=== PATIENT | female | born 1955 | race Caucasian/White ===

== ENCOUNTER 2017-03-11 23:32 | Inpatient (IN) | payer OTHER, MEDICARE ==
--- NOTE | 2017-03-12 00:05 | ED PDOC ---
Arrival/HPI - General Chief Complaint: Altered Mental Status Time Seen by Provider: 03/11/17 23:48 Historian: Family (Daughter) - History of Present Illness Narrative History of Present Illness (Text): 03/11/17 23:59 A 61 year old female, whose past medical history includes diabetes, hypertension , and hypothyroidism, who presents to emergency room brought in by EMS for altered mental status since earlier today. 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 Daughter reports patient was also complaining of dizziness. Daughter notes this is not her mother's normal behavior. Patient is oriented to person and place, disoriented to time. ROS and HPI limited due to patient's condition. Time/Duration: Other (earlier today) Symptom Onset: Other Symptom Course: Other Quality: Other Activities at Onset: Rest Context: Home Past Medical History - Provider Review Nursing Documentation Reviewed: Yes - Infectious Disease Hx of Infectious Diseases: None - Cardiac Hx Angina: Yes Hx Atrial Fibrillation: No Hx Congestive Heart Failure: No Hx SD: No Hx Hypertension: Yes Hx Pacemaker: No Hx Peripheral Vascular Disease: No - Pulmonary Hx Asthma: No Hx Chronic Obstructive Pulmonary Disease (COPD): No - Neurological Hx Seizures: No - HEENT Hx HEENT Disorder: No - Renal Hx Renal Disorder: No - Endocrine/Metabolic Hx Hypothyroidism: Yes - Hematological/Oncological Hx Blood Disorders: No - Integumentary Hx Dermatological Disorder: No - Musculoskeletal/Rheumatological Hx Arthritis: Yes (shoulder) - Gastrointestinal Hx Gastrointestinal Disorders: Yes Hx Hemorrhoids: Yes - Genitourinary/Gynecological Hx Genitourinary Disorders: No - Psychiatric Hx Psychophysiologic Disorder: No Hx Substance Use: No - Surgical History Hx Cardiac Catheterization: No Hx Coronary Artery Bypass Graft: No - Anesthesia Hx Anesthesia: Yes Hx Anesthesia Reactions: No Hx Malignant Hyperthermia: No Family/Social History - Physician Review Nursing Documentation Reviewed: Yes Family/Social History: No Known Family HX Smoking Status: Heavy Smoker > 10 Cigarettes Daily Hx Alcohol Use: No Hx Substance Use: No Allergies/Home Meds Allergies/Adverse Reactions: Allergies No Known Allergies Allergy (Verified 03/11/17 23:38) Home Medications: Home Meds Medication Instructions Recorded Confirmed Calcium Carbonate [Caltrate 600] 600 mg PO BID 08/29/13 08/29/13 Fluticasone/Salmeterol [Advair 1 puff IH DAILY 08/29/13 08/29/13 Diskus 250/50] Levothyroxine Sodium 100 mcg PO DAILY 08/29/13 03/11/17 [Levothyroxine] Metformin HCl 1,000 mg PO BID 08/29/13 08/29/13 Sitagliptin Phosphate [Januvia] 50 mg PO DAILY 08/29/13 08/29/13 Canagliflozin [Invokana] 300 mg PO 10/22/15 Cyclobenzaprine [Flexeril] 5 mg PO HS 10/22/15 03/11/17 Mometasone/Formoterol [Dulera 200 10/22/15 Mcg/5 Mcg Inhaler] Naproxen [Naprosyn] 10/22/15 Rosuvastatin Calcium [Crestor] 10/22/15 Valsartan [Diovan] 10/22/15 Aspirin [Ecotrin] 81 mg PO DAILY 03/11/17 03/11/17 Review of Systems - Review of Systems Systems not reviewed;Unavailable: Altered Mental Status Neurological: Dizziness Physical Exam Vital Signs Reviewed: Yes Vital Signs Temp Pulse Resp BP Pulse Ox 03/12/17 04:14 65 22 97 03/12/17 03:19 72 26 H 146/74 97 03/12/17 02:17 60 13 135/75 96 03/12/17 01:11 64 18 139/80 97 03/12/17 00:00 98.2 F 03/11/17 23:34 69 18 148/91 H 96 Temperature: Afebrile Blood Pressure: Normal Pulse: Regular Respiratory Rate: Normal Appearance: Positive for: Well-Appearing, Non-Toxic, Comfortable Pain Distress: None Mental Status: Positive for: Confused (Confused, oriented x2 (person and place)) . No: Alert and Oriented X 3 Finger Stick Blood Glucose: 117 - Systems Exam Head: Present: Atraumatic, Normocephalic Pupils: Present: PERRL Extroacular Muscles: Present: EOMI Conjunctiva: Present: Normal Mouth: Present: Moist Mucous Membranes Neck: Present: Normal Range of Motion Respiratory/Chest: Present: Clear to Auscultation, Good Air Exchange. No: Respiratory Distress, Accessory Muscle Use Cardiovascular: Present: Regular Rate and Rhythm, Normal S1, S2. No: Murmurs Abdomen: Present: Normal Bowel Sounds. No: Tenderness, Distention, Peritoneal Signs Back: Present: Normal Inspection Upper Extremity: Present: Normal Inspection. No: Cyanosis, Edema Lower Extremity: Present: Normal Inspection. No: Edema Neurological: Present: CN II-XII Intact, Speech Normal, Motor Func Grossly Intact, Normal Sensory Function Skin: Present: Warm, Dry, Normal Color. No: Rashes Psychiatric: No: Oriented x 3 (Confused, oriented x2 (person and place only)) Medical Decision Making ED Course and Treatment: 03/12/17 00:08 Impression: A 61 year old female complaining of disoriented/confused tonight after waking up. Differential Diagnosis included but are not limited to: hypogylcemia vs. cerebral bleed vs. CVA Plan: -- CAT scan head -- EKG -- Chest X-ray -- labs and blood work -- Reassess and disposition Progress Notes: EKG: Ordered, reviewed, and independently interpreted the EKG. Rate : 63 BPM Rhythm : NSR. Left axis deviation. Inferior infarct Interpretation : No ST-segment elevations or depressions, no T-wave inversions, normal intervals. 03/12/17 00:47 Reviewed radiology, Chest X-ray shows no acute processes. 03/12/17 00:59 CT Head Without Intravenous Contrast shows FINDINGS: Limitations: Limited due to patient positioning. Brain: There is mixed density acute on subacute right convexity subdural hematoma measuring 1.7 cm with subfalcine herniation and [id number] midline shift of 1.7 cm. There is mild uncal herniation. No significant white matter disease. Ventricles: There is entrapment of right lateral ventricle and dilatation of left lateral ventricle.Correlation with clinical data is recommended to evaluate for acute obstructive hydrocephalus. Bones/joints: Unremarkable. No acute fracture. Soft tissues: Unremarkable. Sinuses: Unremarkable. No acute sinusitis. Mastoid air cells: Unremarkable. No mastoid effusion. Orbits: The globe and lens are intact. Dental: Edentulous maxilla and mandible. IMPRESSION: 1. There is mixed density acute on subacute right convexity subdural hematoma measuring 1.7 cm with subfalcine herniation and [id number] midline shift of 1.7 cm. 2. There is mild uncal herniation. 3. There is entrapment of right lateral ventricle and dilatation of left lateral ventricle.Correlation with clinical data is recommended to evaluate for acute obstructive hydrocephalus. 03/12/17 01:[address] Luna, neurosurgeon perfusionist, who is aware and agrees with plan. States pt will go to the OR in the morning. Requests ICU admission. 03/12/17 01:[address] Loja, electronics lead, who is aware and agrees to evaluate pt. 03/12/17 01:55 Case was discussed with Dr. Luna,Dr. Newby, Dr. Loja. Decided that pt should undergo earlier surgical intervention given the nature of her CT scan findings and pt's increasing somnolence. 03/12/17 02:16 Case discussed with , who requests patient go to the hospitalist service. 03/12/17 02:17 Spoke with . Patient will be admitted to ICU for subdural hematoma under the hospital service. - Critical Care Critical Care Minutes: 30 minutes - Lab Interpretations Lab Results: 03/12/17 00:15 03/12/17 00:15 Lab Results 03/12/17 00:15: WBC 9.4, RBC 5.63, Hgb 12.6, Hct 37.6, MCV 66.8 L, MCH 22.4 L, MCHC 33.5, RDW 14.6 H, Plt Count 263, MPV 10.4 03/12/17 00:15: Sodium 143, Potassium 3.6, Chloride 104, Carbon Dioxide 25, Anion Gap 17, BUN 13, Creatinine 0.6 L, Est GFR ( Amer) > 60, Est GFR ( Non-Af Amer) > 60, Random Glucose 137 H, Calcium 7.1 L, Total Bilirubin 0.6, AST 23, ALT 32, Alkaline Phosphatase 54, Lactate Dehydrogenase 505, Total Creatine Kinase 119, Troponin I < 0.01, Total Protein 7.4, Albumin 4.4, Globulin 3.0, Albumin/Globulin Ratio 1.4 03/12/17 00:15: PT 12.0, INR 1.10 H, APTT 33.0 I have reviewed the lab results: Yes - RAD Interpretation Radiology Orders: 03/12/17 00:03 CHEST PORTABLE [RAD] Stat 03/12/17 00:04 HEAD W/O CONTRAST [CT] Stat Numerical Control Machine Tool Operator: ED Physician - EKG Interpretation Interpreted by ED Physician: Yes Type: 12 lead EKG - Medication Orders Current Medication Orders: Hydromorphone HCl (Dilaudid) 0.5 mg IVP Q15M PRN PRN Reason: Pain, moderate (4-7) Stop: 03/13/17 06:15 Sodium Chloride (Sodium Chloride 0.9%) 1,000 mls @ 100 mls/hr IV .Q10H [facility] Last Admin: 03/12/17 03:00 Dose: 100 mls/hr eMAR Start Stop Document 03/12/17 03:00 JODY (Rec: 03/12/17 03:32 [id number]) Intravenous Solution Start Date 03/12/17 Start Time 03:00 Insulin Human Lispro (Humalog Low) 0 units SC Q4H JIN PRN Reason: Protocol Last Admin: 03/12/17 03:00 Dose: Not Given Non-Admin Reason: Blood Sugar Parameter Comments: 127 MAR Blood Glucose Document 03/12/17 03:00 JODY (Rec: 03/12/17 03:33 [id number]) Blood Glucose Finger Stick Blood Glucose (70-120) 127 Subcutaneous Administrations Document 03/12/17 03:00 JODY (Rec: 03/12/17 03:33 [id number]) Charges for Administration # of Subcutaneous Administrations 0 Levothyroxine Sodium (Synthroid) 50 mcg IVP DAILY JIN Pantoprazole Sodium (Protonix Inj) 40 mg IVP DAILY JIN - Scribe Statement The provider has reviewed the documentation as recorded by the Scribrandy Dc under supervision of Ailyn Lane. Provider Scribe Attestation: All medical record entries made by the Scribe were at my direction and personally dictated by me. I have reviewed the chart and agree that the record accurately reflects my personal performance of the history, physical exam, medical decision making, and the department course for this patient. I have also personally directed, reviewed, and agree with the discharge instructions and disposition. Disposition/Present on Arrival - Present on Arrival Any Indicators Present on Arrival: No History of DVT/PE: No History of Uncontrolled Diabetes: Yes Urinary Catheter: No History of Decub. Ulcer: No History Surgical Site Infection Following: None - Disposition Have Diagnosis and Disposition been Completed?: Yes Diagnosis: Subdural hematoma Disposition: HOSPITALIZED Disposition Time: 02:23 Patient Plan: Admission Patient Problems: Current Active Problems Problem Status Onset Subdural hematoma Acute Condition: GUARDED
[2017-03-12 00:37] LABS: HEMATOCRIT 37.6 % (36.0-48.0); MEAN CELL VOLUME 66.8 fl (80.0-105.0); MEAN CORPUSCULAR HEMOGLOBIN 22.4 pg (25.0-35.0); MEAN CORPUSCULAR HGB CONC 33.5 g/dl (31.0-37.0); MEAN PLATELET VOLUME 10.4 fl (7.0-11.0); RED CELL DISTRIBUTION WIDTH 14.6 % (11.5-14.5); WHITE BLOOD COUNT 9.4 10^3/ul (4.5-11.0)
[2017-03-12 00:39] LABS: ALB/GLOB RATIO 1.4 (1.1-1.8); ALKALINE PHOSPHATASE 54 U/L (38-126); ALT/SGPT 32 U/L (7-56); AST/SGOT 23 U/L (14-36); BILIRUBIN,TOTAL 0.6 mg/dL (0.2-1.3); BLOOD UREA NITROGEN 13 mg/dL (7-21); CALCIUM 7.1 mg/dL (8.4-10.5); CARBON DIOXIDE 25 mmol/L (21-33); CHLORIDE 104 mmol/L (98-107); GFR AFRICAN-AMERICAN > 60; GLUCOSE,RANDOM 137 mg/dL (70-110); POTASSIUM 3.6 mmol/L (3.6-5.0); SODIUM 143 mmol/L (132-148); TOTAL PROTEIN 7.4 g/dL (5.8-8.3)
[2017-03-12 00:49] LABS: INR 1.1 (0.93-1.08)
--- NOTE | 2017-03-12 00:55 | CT ---
EXAM: CT Head Without Intravenous Contrast CLINICAL HISTORY: 61 years old, female; Signs and symptoms; Altered mental status/memory loss; Additional info: AMS TECHNIQUE: Axial computed tomography images of the head/brain without intravenous contrast. All CT scans at this facility use one or more dose reduction techniques, viz.: automated exposure control; ma/kV adjustment per patient size (including targeted exams where dose is matched to indication; i.e. head); or iterative reconstruction technique. 140 images are submitted. COMPARISON: No relevant prior studies available. FINDINGS: Limitations: Limited due to patient positioning. Brain: There is mixed density acute on subacute right convexity subdural hematoma measuring 1.7 cm with subfalcine herniation and [id number] midline shift of 1.7 cm. There is mild uncal herniation. No significant white matter disease. Ventricles: There is entrapment of right lateral ventricle and dilatation of left lateral ventricle.Correlation with clinical data is recommended to evaluate for acute obstructive hydrocephalus. Bones/joints: Unremarkable. No acute fracture. Soft tissues: Unremarkable. Sinuses: Unremarkable. No acute sinusitis. Mastoid air cells: Unremarkable. No mastoid effusion. Orbits: The globe and lens are intact. Dental: Edentulous maxilla and mandible. IMPRESSION: 1. There is mixed density acute on subacute right convexity subdural hematoma measuring 1.7 cm with subfalcine herniation and [id number] midline shift of 1.7 cm. 2. There is mild uncal herniation. 3. There is entrapment of right lateral ventricle and dilatation of left lateral ventricle.Correlation with clinical data is recommended to evaluate for acute obstructive hydrocephalus.
[2017-03-12 00:57] LABS: TROPONIN I < 0.01 ng/mL
--- NOTE | 2017-03-12 01:31 | CP.PCM.CON ---
Past Patient History - Infectious Disease Hx of Infectious Diseases: None - Past Medical History & Family History Past Medical History?: Yes - Past Social History Smoking Status: Heavy Smoker > 10 Cigarettes Daily - CARDIAC Hx Angina: Yes Hx Atrial Fibrillation: No Hx Congestive Heart Failure: No Hx Heart Attack: No Hx Hypertension: Yes Hx Pacemaker: No Hx Peripheral Vascular Disease: No - PULMONARY Hx Asthma: No Hx Chronic Obstructive Pulmonary Disease (COPD): No - NEUROLOGICAL Hx Seizures: No - HEENT Hx HEENT Problems: No - RENAL Hx Chronic Kidney Disease: No - ENDOCRINE/METABOLIC Hx Hypothyroidism: Yes - HEMATOLOGICAL/ONCOLOGICAL Hx Blood Disorders: No - INTEGUMENTARY Hx Dermatological Problems: No - MUSCULOSKELETAL/RHEUMATOLOGICAL Hx Arthritis: Yes (shoulder) - GASTROINTESTINAL Hx Gastrointestinal Disorders: Yes Hx Hemorrhoids: Yes - GENITOURINARY/GYNECOLOGICAL Hx Genitourinary Disorders: No - PSYCHIATRIC Hx Psychophysiologic Disorder: No Hx Substance Use: No - SURGICAL HISTORY Hx Cardiac Catheterization: No Hx Coronary Artery Bypass Graft: No - ANESTHESIA Hx Anesthesia: Yes Hx Anesthesia Reactions: No Hx Malignant Hyperthermia: No Meds Allergies/Adverse Reactions: Allergies Allergy/AdvReac Type Severity Reaction Status Date / Time No Known Allergies Allergy Verified 03/11/17 23:38 Results - Vital Signs Recent Vital Signs: Last Vital Signs Temp 98.2 F 03/12/17 00:00 Pulse 64 03/12/17 01:11 Resp 18 03/12/17 01:11 BP 139/80 03/12/17 01:11 Pulse Ox 97 03/12/17 01:11 - Labs Result Diagrams: 03/12/17 00:15 03/12/17 00:15 Labs: Laboratory Results - last 24 hr 03/12/17 03/12/17 03/12/17 00:15 00:15 00:15 WBC 9.4 RBC 5.63 Hgb 12.6 Hct 37.6 MCV 66.8 L MCH 22.4 L MCHC 33.5 RDW 14.6 H Plt Count 263 MPV 10.4 PT 12.0 INR 1.10 H APTT 33.0 Sodium 143 Potassium 3.6 Chloride 104 Carbon Dioxide 25 Anion Gap 17 BUN 13 Creatinine 0.6 L Est GFR ( Amer) > 60 Est GFR (Non-Af Amer) > 60 Random Glucose 137 H Calcium 7.1 L Total Bilirubin 0.6 AST 23 ALT 32 Alkaline Phosphatase 54 Lactate Dehydrogenase 505 Total Creatine Kinase 119 Troponin I < 0.01 Total Protein 7.4 Albumin 4.4 Globulin 3.0 Albumin/Globulin Ratio 1.4
--- NOTE | 2017-03-12 02:09 | CP.PCM.CON ---
History of Present Illness - History of Present Illness History of Present Illness: ICU Consult Note for Dr. Loja Please note history as per daughter at bedside as patient was obtunded 61yo female PMHx HTN, DM2, and hypothyroidism [place] [facility] [place]. Patient's daughter reports that she first noticed that her mother was confused and disoriented when she tried to wake her up at 9pm on the evening of admission. Patient works nights at [employer] and was due to work a shift on night of admission. As per daughter, patient's coworker had informed her that the patient was extremely "sleepy" the night prior at work and could not stay awake. Patient had also complained of some dizziness today and a headache a few days ago. Complete ROS and HPI limited due to patient's condition. PMD: Dr. 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; no drug/ alcohol abuse Meds: pls see chart ALL: denies Past Patient History - Infectious Disease Hx of Infectious Diseases: None - Past Medical History & Family History Past Medical History?: Yes - Past Social History Smoking Status: Heavy Smoker > 10 Cigarettes Daily - CARDIAC Hx Angina: Yes Hx Atrial Fibrillation: No Hx Congestive Heart Failure: No Hx Heart Attack: No Hx Hypertension: Yes Hx Pacemaker: No Hx Peripheral Vascular Disease: No - PULMONARY Hx Asthma: No Hx Chronic Obstructive Pulmonary Disease (COPD): No - NEUROLOGICAL Hx Seizures: No - HEENT Hx HEENT Problems: No - RENAL Hx Chronic Kidney Disease: No - ENDOCRINE/METABOLIC Hx Hypothyroidism: Yes - HEMATOLOGICAL/ONCOLOGICAL Hx Blood Disorders: No - INTEGUMENTARY Hx Dermatological Problems: No - MUSCULOSKELETAL/RHEUMATOLOGICAL Hx Arthritis: Yes (shoulder) - GASTROINTESTINAL Hx Gastrointestinal Disorders: Yes Hx Hemorrhoids: Yes - GENITOURINARY/GYNECOLOGICAL Hx Genitourinary Disorders: No - PSYCHIATRIC Hx Psychophysiologic Disorder: No Hx Substance Use: No - SURGICAL HISTORY Hx Cardiac Catheterization: No Hx Coronary Artery Bypass Graft: No - ANESTHESIA Hx Anesthesia: Yes Hx Anesthesia Reactions: No Hx Malignant Hyperthermia: No Meds Allergies/Adverse Reactions: Allergies Allergy/AdvReac Type Severity Reaction Status Date / Time No Known Allergies Allergy Verified 03/11/17 23:38 - Medications Medications: Current Medications Sodium Chloride (Sodium Chloride 0.9%) 1,000 mls @ 100 mls/hr IV .Q10H JIN Insulin Human Lispro (Humalog Low) 0 units SC Q4H JIN PRN Reason: Protocol Levothyroxine Sodium (Synthroid) 50 mcg IVP DAILY JIN Pantoprazole Sodium (Protonix Inj) 40 mg IVP DAILY JIN Results - Vital Signs Recent Vital Signs: Last Vital Signs Temp 98.2 F 03/12/17 00:00 Pulse 64 03/12/17 01:11 Resp 18 03/12/17 01:11 BP 139/80 03/12/17 01:11 Pulse Ox 97 03/12/17 01:11 - Labs Result Diagrams: 03/12/17 00:15 03/12/17 00:15 Labs: Laboratory Results - last 24 hr 03/12/17 03/12/17 03/12/17 00:15 00:15 00:15 WBC 9.4 RBC 5.63 Hgb 12.6 Hct 37.6 MCV 66.8 L MCH 22.4 L MCHC 33.5 RDW 14.6 H Plt Count 263 MPV 10.4 PT 12.0 INR 1.10 H APTT 33.0 Sodium 143 Potassium 3.6 Chloride 104 Carbon Dioxide 25 Anion Gap 17 BUN 13 Creatinine 0.6 L Est GFR ( Amer) > 60 Est GFR (Non-Af Amer) > 60 Random Glucose 137 H Calcium 7.1 L Total Bilirubin 0.6 AST 23 ALT 32 Alkaline Phosphatase 54 Lactate Dehydrogenase 505 Total Creatine Kinase 119 Troponin I < 0.01 Total Protein 7.4 Albumin 4.4 Globulin 3.0 Albumin/Globulin Ratio 1.4
--- NOTE | 2017-03-12 02:30 | CP.PCM.HP ---
<TristenKati - Last Filed: 03/12/17 02:55> History of Present Illness - History of Present Illness History of Present Illness: Medicine Note for Dr. Loja Please note history as per daughter at bedside as patient was somnolent and not following commands 61yo female PMHx HTN, DM2, and hypothyroidism presents to [facility] ED for AMS. Patient's daughter reports that she first noticed that her mother was confused and disoriented when she tried to wake her up at 9pm on the evening of admission. Patient works nights at [employer] and was due to work a shift on night of admission. As per daughter, patient's coworker had informed her that the patient was extremely "sleepy" the night prior at work and could not stay awake. Patient had also complained of some dizziness today and a headache a few days ago. Complete ROS and HPI limited due to patient's condition. PMD: Dr. 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; no drug/ alcohol abuse Meds: pls see chart ALL: denies Present on Admission - Present on Admission Any Indicators Present on Admission: No Review of Systems - Review of Systems Systems not reviewed;Unavailable: Acuity of Condition, Altered Mental Status Past Patient History - Infectious Disease Hx of Infectious Diseases: None - Past Medical History & Family History Past Medical History?: Yes - Past Social History Smoking Status: Heavy Smoker > 10 Cigarettes Daily - CARDIAC Hx Angina: Yes Hx Atrial Fibrillation: No Hx Congestive Heart Failure: No Hx Heart Attack: No Hx Hypertension: Yes Hx Pacemaker: No Hx Peripheral Vascular Disease: No - PULMONARY Hx Asthma: No Hx Chronic Obstructive Pulmonary Disease (COPD): No - NEUROLOGICAL Hx Seizures: No - HEENT Hx HEENT Problems: No - RENAL Hx Chronic Kidney Disease: No - ENDOCRINE/METABOLIC Hx Hypothyroidism: Yes - HEMATOLOGICAL/ONCOLOGICAL Hx Blood Disorders: No - INTEGUMENTARY Hx Dermatological Problems: No - MUSCULOSKELETAL/RHEUMATOLOGICAL Hx Arthritis: Yes (shoulder) - GASTROINTESTINAL Hx Gastrointestinal Disorders: Yes Hx Hemorrhoids: Yes - GENITOURINARY/GYNECOLOGICAL Hx Genitourinary Disorders: No - PSYCHIATRIC Hx Psychophysiologic Disorder: No Hx Substance Use: No - SURGICAL HISTORY Hx Cardiac Catheterization: No Hx Coronary Artery Bypass Graft: No - ANESTHESIA Hx Anesthesia: Yes Hx Anesthesia Reactions: No Hx Malignant Hyperthermia: No Meds Allergies/Adverse Reactions: Allergies Allergy/AdvReac Type Severity Reaction Status Date / Time No Known Allergies Allergy Verified 03/12/17 12:20 Physical Exam - Constitutional Appears: Confused Additional comments: Limited- patient not following commands - Head Exam Head Exam: ATRAUMATIC, NORMOCEPHALIC - Eye Exam Eye Exam: Normal appearance, PERRL. absent: Conjunctival injection, Scleral icterus - ENT Exam ENT Exam: Mucous Membranes Moist - Respiratory Exam Respiratory Exam: Clear to Auscultation Bilateral, NORMAL BREATHING PATTERN. absent: Accessory Muscle Use, Rales, Rhonchi, Wheezes, Respiratory Distress - Cardiovascular Exam Cardiovascular Exam: REGULAR RHYTHM, +S1, +S2. absent: Systolic Murmur - GI/Abdominal Exam GI & Abdominal Exam: Normal Bowel Sounds, Soft. absent: Tenderness - Extremities Exam Extremities exam: Positive for: normal capillary refill, normal inspection, pedal pulses present. Negative for: pedal edema - Neurological Exam Neurological exam: Altered Additional comments: somnolent - Skin Skin Exam: Dry, Intact Results - Vital Signs Recent Vital Signs: Last Vital Signs Temp 98.2 F 03/12/17 00:00 Pulse 60 03/12/17 02:17 Resp 13 03/12/17 02:17 BP 135/75 03/12/17 02:17 Pulse Ox 96 03/12/17 02:17 - Labs Result Diagrams: 03/12/17 00:15 03/12/17 00:15 Labs: Laboratory Results - last 24 hr 03/12/17 03/12/17 03/12/17 00:15 00:15 00:15 WBC 9.4 RBC 5.63 Hgb 12.6 Hct 37.6 MCV 66.8 L MCH 22.4 L MCHC 33.5 RDW 14.6 H Plt Count 263 MPV 10.4 PT 12.0 INR 1.10 H APTT 33.0 Sodium 143 Potassium 3.6 Chloride 104 Carbon Dioxide 25 Anion Gap 17 BUN 13 Creatinine 0.6 L Est GFR ( Amer) > 60 Est GFR (Non-Af Amer) > 60 Random Glucose 137 H Calcium 7.1 L Total Bilirubin 0.6 AST 23 ALT 32 Alkaline Phosphatase 54 Lactate Dehydrogenase 505 Total Creatine Kinase 119 Troponin I < 0.01 Total Protein 7.4 Albumin 4.4 Globulin 3.0 Albumin/Globulin Ratio 1.4 Assessment & Plan - Assessment and Plan (Free Text) Assessment: 61yo female PMHx HTN, DM2, and hypothyroidism presents to [facility] ED for AMS. Plan: Altered Mental Status -likely secondary to acute on subacute R subdural hematoma -admit to ICU -CT head 03/12: mxied density acute on subacute R convexity subdural hematoma measuring 1.7cm with subfalcine herniation and [id number] midline shift of 1.7cm. There is mild uncal herniation. There is entrapment of right lateral ventricle and dilatation of left lateral ventricle. Correlation with clinical data is recommended to evaluate for acute obstructive hydrocephalus. -patient to go to OR for intervention with neurosurgery given CT head findings and presentation of somnolence -HoB 30degrees -Aspiration, Seizure, and Fall precautions -Neurosurgery Dr. Luna consulted -Neurology Dr. Newby consulted Hx of HTN -patient normotensive on admission -monitor Hx of Hypothyroidism -f/u TSH and free T4 in AM -Synthroid 50mg ivp qdaily Hx of DM -f/u HgbA1c -Accucheck q4 -RISS low q4 GI ppx: Protonix 40mg ivp DVT ppx: VTE c/i; SCDs Diet: NPO Fluids: NS @ 100cc/hr Discussed with Dr. Freedom Ramon PGY2 <Grey Loja Q - Last Filed: 03/13/17 06:58> Results - Vital Signs Recent Vital Signs: Last Vital Signs Temp 99.2 F 03/13/17 06:00 Pulse 69 03/13/17 06:50 Resp 12 03/13/17 06:50 BP 117/59 L 03/13/17 06:00 Pulse Ox 96 03/13/17 02:50 - Labs Result Diagrams: 03/13/17 05:30 03/12/17 09:00 Labs: Laboratory Results - last 24 hr 03/12/17 03/12/17 03/12/17 06:00 07:31 09:00 WBC 13.6 H D RBC 5.48 Hgb 12.0 Hct 36.8 MCV 67.2 L MCH 21.9 L MCHC 32.6 RDW 14.6 H Plt Count 248 MPV 9.9 Gran % 71.8 H Lymph % (Auto) 21.9 L [place] % (Auto) 5.7 Eos % (Auto) 0.4 L Baso % (Auto) 0.2 Gran # 9.79 H Lymph # 3.0 Mobile # 0.8 H Eos # 0.1 Baso # 0.03 Sodium Potassium Chloride Carbon Dioxide Anion Gap BUN Creatinine Est GFR ( Amer) Est GFR (Non-Af Amer) POC Glucose (mg/dL) 147 H Random Glucose Hemoglobin A1c Calcium Phosphorus Magnesium Total Bilirubin AST ALT Alkaline Phosphatase Total Protein Albumin Globulin Albumin/Globulin Ratio 25-OH Vitamin D Total 37.1 Free T4 TSH 3rd Generation 03/12/17 03/12/17 03/12/17 09:00 09:00 09:00 WBC RBC Hgb Hct MCV MCH MCHC RDW Plt Count MPV Gran % Lymph % (Auto) [place] % (Auto) Eos % (Auto) Baso % (Auto) Gran # Lymph # Mobile # Eos # Baso # Sodium 144 Potassium 3.4 L Chloride 107 Carbon Dioxide 27 Anion Gap 14 BUN 14 Creatinine 0.7 Est GFR ( Amer) > 60 Est GFR (Non-Af Amer) > 60 POC Glucose (mg/dL) Random Glucose 124 H Hemoglobin A1c 7.2 H Calcium 6.4 L* Phosphorus 5.5 H Magnesium 1.8 Total Bilirubin 0.5 AST 25 ALT 28 Alkaline Phosphatase 48 Total Protein 7.1 Albumin 4.2 Globulin 2.9 Albumin/Globulin Ratio 1.4 25-OH Vitamin D Total Free T4 0.87 TSH 3rd Generation 13.90 H 03/12/17 03/12/17 03/12/17 11:12 16:27 21:59 WBC RBC Hgb Hct MCV MCH MCHC RDW Plt Count MPV Gran % Lymph % (Auto) [place] % (Auto) Eos % (Auto) Baso % (Auto) Gran # Lymph # Mobile # Eos # Baso # Sodium Potassium Chloride Carbon Dioxide Anion Gap BUN Creatinine Est GFR ( Amer) Est GFR (Non-Af Amer) POC Glucose (mg/dL) 104 156 H 104 Random Glucose Hemoglobin A1c Calcium Phosphorus Magnesium Total Bilirubin AST ALT Alkaline Phosphatase Total Protein Albumin Globulin Albumin/Globulin Ratio 25-OH Vitamin D Total Free T4 TSH 3rd Generation 03/13/17 03/13/17 03/13/17 02:52 05:30 06:48 WBC 9.5 D RBC 4.81 Hgb 10.3 L Hct 32.2 L MCV 66.9 L MCH 21.4 L MCHC 32.0 RDW 14.4 Plt Count 205 MPV 10.2 Gran % 62.6 Lymph % (Auto) 27.7 [place] % (Auto) 8.5 H Eos % (Auto) 1.0 L Baso % (Auto) 0.2 Gran # 5.93 Lymph # 2.6 Mobile # 0.8 H Eos # 0.1 Baso # 0.02 Sodium Potassium Chloride Carbon Dioxide Anion Gap BUN Creatinine Est GFR ( Amer) Est GFR (Non-Af Amer) POC Glucose (mg/dL) 118 H 108 Random Glucose Hemoglobin A1c Calcium Phosphorus Magnesium Total Bilirubin AST ALT Alkaline Phosphatase Total Protein Albumin Globulin Albumin/Globulin Ratio 25-OH Vitamin D Total Free T4 TSH 3rd Generation Attending/Attestation - Attestation I have personally seen and examined this patient.: Yes I have fully participated in the care of the patient.: Yes I have reviewed all pertinent clinical information: Yes Notes (Text): 03/13/17 06:53 I agree with the above mentioned note and exam by the resident with the addition of the followin61 y/o female with a PMHx Htn, hypothyroid was brought to the ED by her daughter for increasing somnolence over the past one to 2 days. She states that she became concerned when the patient didn't case picker her grandson from school so she went to check on her. She was also noted to be increasingly lethargic and somnolent while at work the night prior. Patient was unable to participate in the history or physical exam due to her SDH. She was not following commands and minimally responsive to verbal stimulus. Case discussed with Dr. Luna ( neurosurgeon) at approximately 1:45am who initially planned to take the patient to the OR later in the morning, would be coming in now to take the patient to the OR. Daughter was made aware. Patient will be sent to the ICU post-op for recovery and monitoring all labs and images available to me thus far have been reviewed total time of care: 40 minutes
[2017-03-12] MEDS: Sodium Chloride 0.9% 1,000 ML IV SCH ×2 (03:00→19:45)
[2017-03-12] MEDS: Insulin Lispro (humaLOG) LOW Coverage SC SCH ×6 (03:00→22:31)
[2017-03-12] MEDS ORDERED: Absorbable Gelatin Sponge Size 100 ONE (03:05)
[2017-03-12] MEDS ORDERED: Lidocaine 1% w Epi 1:100,000 Inj ONE (03:06)
[2017-03-12] MEDS ORDERED: Liquid Adhesive TOP ONE (03:06)
[2017-03-12] MEDS ORDERED: Propofol 10 mg/ml Inj (20 ML) ONE (03:19)
[2017-03-12] MEDS ORDERED: Midazolam 2 MG/2 ML VIAL ONE (03:19)
[2017-03-12] MEDS ORDERED: Phenylephrine 10 mg/ml Inj ONE (04:09)
[2017-03-12] MEDS ORDERED: ePHEDrine 50 mg/ml Inj ONE (04:09)
[2017-03-12] MEDS ORDERED: cefTRIAXone (Rocephin) 1 gm Inj ONE (04:32)
[2017-03-12] MEDS ORDERED: Neostigmine Methylsulfate 3mg/3ml Syringe IV ONE (05:23)
[2017-03-12] MEDS ORDERED: Glycopyrrolate 0.2 mg/ml (2ml vial) ONE (05:24)
[2017-03-12] MEDS ORDERED: Bacitracin Ointment 30 GM TUBE ONE (05:39)
[2017-03-12] MEDS ORDERED: HYDROmorphone 0.5 mg/0.5 ml ISec IVP PRN (06:14)
--- NOTE | 2017-03-12 08:23 | RAD ---
HISTORY: ams COMPARISON: No prior. FINDINGS: LUNGS: No active pulmonary disease. PLEURA: No significant pleural effusion identified, no pneumothorax apparent. CARDIOVASCULAR: Normal. OSSEOUS STRUCTURES: No significant abnormalities. VISUALIZED UPPER ABDOMEN: Normal. OTHER FINDINGS: None. IMPRESSION: No active disease.
[2017-03-12 09:18] LABS: BASO # 0.03 K/mm3 (0.0-2.0); BASO % 0.2 % (0.0-3.0); EOS # 0.1 (0.0-0.7); EOS % 0.4 % (1.5-5.0); GRAN # 9.79 (1.4-6.5); GRAN % 71.8 % (50.0-68.0); HEMATOCRIT 36.8 % (36.0-48.0); LYMPH % 21.9 % (22.0-35.0); MEAN CELL VOLUME 67.2 fl (80.0-105.0); MEAN CORPUSCULAR HEMOGLOBIN 21.9 pg (25.0-35.0); MEAN CORPUSCULAR HGB CONC 32.6 g/dl (31.0-37.0); MEAN PLATELET VOLUME 9.9 fl (7.0-11.0); MONO # 0.8 (0.1-0.6); MONO % 5.7 % (1.0-6.0); RED CELL DISTRIBUTION WIDTH 14.6 % (11.5-14.5); WHITE BLOOD COUNT 13.6 10^3/ul (4.5-11.0)
[2017-03-12 09:37] LABS: ALB/GLOB RATIO 1.4 (1.1-1.8); ALKALINE PHOSPHATASE 48 U/L (38-126); ALT/SGPT 28 U/L (7-56); AST/SGOT 25 U/L (14-36); BILIRUBIN,TOTAL 0.5 mg/dL (0.2-1.3); BLOOD UREA NITROGEN 14 mg/dL (7-21); CALCIUM 6.4 mg/dL (8.4-10.5); CARBON DIOXIDE 27 mmol/L (21-33); CHLORIDE 107 mmol/L (98-107); GFR AFRICAN-AMERICAN > 60; GLUCOSE,RANDOM 124 mg/dL (70-110); MAGNESIUM 1.8 mg/dL (1.7-2.2); PHOSPHOROUS 5.5 mg/dL (2.5-4.5); POTASSIUM 3.4 mmol/L (3.6-5.0); SODIUM 144 mmol/L (132-148); TOTAL PROTEIN 7.1 g/dL (5.8-8.3)
[2017-03-12 09:44] LABS: FREE T4 0.87 ng/dL (0.78-2.19)
[2017-03-12] MEDS: Levothyroxine 100 mcg (0.1 mg) Inj IVP SCH (09:51)
[2017-03-12 09:58] LABS: THYROID STIMULATING HORMONE 13.9 mIU/mL (0.46-4.68)
--- NOTE | 2017-03-12 11:16 | CP.PCM.CON ---
<Georgette Cheung - Last Filed: 03/12/17 12:27> History of Present Illness - History of Present Illness History of Present Illness: PGY-2 Neurology progress note for Dr. Newby's service 61 yo female with PMH of HTN, DM2, and hypothyroidism presents to [facility] ED for AMS. Per ED note patient's daughter reported that her mother was confused and disoriented when she tried to wake her up yesterday evening. Reportedly patient had been sleepy at work the day before and complained of some dizziness, and headache a few days ago. In ED head CT showed subdural hematoma. Patient was taken to OR and had hematoma evacuated. This morning s/p hematoma evacuations, patient is awake, alert however some what groggy. She is able to fellow commends. 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; no drug/alcohol abus Allergy: denies Review of Systems - Review of Systems Systems not reviewed;Unavailable: Altered Mental Status Past Patient History - Infectious Disease Hx of Infectious Diseases: None - Past Medical History & Family History Past Medical History?: Yes - Past Social History Smoking Status: Heavy Smoker > 10 Cigarettes Daily - CARDIAC Hx Angina: Yes Hx Atrial Fibrillation: No Hx Congestive Heart Failure: No Hx Heart Attack: No Hx Hypertension: Yes Hx Pacemaker: No Hx Peripheral Vascular Disease: No - PULMONARY Hx Asthma: No Hx Chronic Obstructive Pulmonary Disease (COPD): No - NEUROLOGICAL Hx Seizures: No - HEENT Hx HEENT Problems: No - RENAL Hx Chronic Kidney Disease: No - ENDOCRINE/METABOLIC Hx Hypothyroidism: Yes - HEMATOLOGICAL/ONCOLOGICAL Hx Blood Disorders: No - INTEGUMENTARY Hx Dermatological Problems: No - MUSCULOSKELETAL/RHEUMATOLOGICAL Hx Arthritis: Yes (shoulder) - GASTROINTESTINAL Hx Gastrointestinal Disorders: Yes Hx Hemorrhoids: Yes - GENITOURINARY/GYNECOLOGICAL Hx Genitourinary Disorders: No - PSYCHIATRIC Hx Psychophysiologic Disorder: No Hx Substance Use: No - SURGICAL HISTORY Hx Cardiac Catheterization: No Hx Coronary Artery Bypass Graft: No - ANESTHESIA Hx Anesthesia: Yes Hx Anesthesia Reactions: No Hx Malignant Hyperthermia: No Meds Allergies/Adverse Reactions: Allergies Allergy/AdvReac Type Severity Reaction Status Date / Time No Known Allergies Allergy Verified 03/12/17 12:20 - Medications Medications: Current Medications Acetaminophen/Butalbital/Caffeine (Fioricet) 1 tab PO Q4H PRN PRN Reason: Headache Sodium Chloride (Sodium Chloride 0.9%) 1,000 mls @ 100 mls/hr IV .Q10H [facility] Last Admin: 03/12/17 03:00 Dose: 100 mls/hr Levetiracetam (Keppra 500mg Ivpb) 500 mg in 100 mls @ 400 mls/hr IVPB Q12 [facility] Insulin Human Lispro (Humalog Low) 0 units SC Q4H JIN PRN Reason: Protocol Last Admin: 03/12/17 10:48 Dose: Not Given Levothyroxine Sodium (Synthroid) 50 mcg IVP DAILY [facility] Last Admin: 03/12/17 09:51 Dose: 50 mcg Pantoprazole Sodium (Protonix Inj) 40 mg IVP DAILY [facility] Last Admin: 03/12/17 09:51 Dose: 40 mg Physical Exam - Constitutional Appears: No Acute Distress - Eye Exam Eye Exam: EOMI, Normal appearance, PERRL - Respiratory Exam Respiratory Exam: Clear to Auscultation Bilateral, NORMAL BREATHING PATTERN. absent: Rhonchi, Wheezes, Respiratory Distress - Cardiovascular Exam Cardiovascular Exam: REGULAR RHYTHM. absent: Tachycardia, Systolic Murmur - Neurological Exam Neurological exam: Alert - Expanded Neurological Exam Expanded Speech: Fluid Speech Cranial nerves: EOM's Intact: Normal, Nystagmus: Normal, Tongue Deviation: Normal Cerebellar Function: Finger to Nose: Normal Upper motor neuron: Pronator Drift: Normal Neuro motor strength exam: Left Upper Extremity: 5, Right Upper Extremity: 5, Left Lower Extremity: 5, Right Lower Extremity: 5 Results - Vital Signs Recent Vital Signs: Last Vital Signs Temp 99.1 F 03/12/17 07:52 Pulse 78 03/12/17 10:00 Resp 11 L 03/12/17 07:50 BP 129/66 03/12/17 07:45 Pulse Ox 100 03/12/17 07:50 - Labs Result Diagrams: 03/12/17 09:00 03/12/17 09:00 Labs: Laboratory Results - last 24 hr 03/12/17 03/12/17 03/12/17 03:27 07:31 09:00 WBC 13.6 H D RBC 5.48 Hgb 12.0 Hct 36.8 MCV 67.2 L MCH 21.9 L MCHC 32.6 RDW 14.6 H Plt Count 248 MPV 9.9 Gran % 71.8 H Lymph % (Auto) 21.9 L [place] % (Auto) 5.7 Eos % (Auto) 0.4 L Baso % (Auto) 0.2 Gran # 9.79 H Lymph # 3.0 [place] # 0.8 H Eos # 0.1 Baso # 0.03 Sodium Potassium Chloride Carbon Dioxide Anion Gap BUN Creatinine Est GFR ( Amer) Est GFR (Non-Af Amer) POC Glucose (mg/dL) 121 H 147 H Random Glucose Calcium Phosphorus Magnesium Total Bilirubin AST ALT Alkaline Phosphatase Total Protein Albumin Globulin Albumin/Globulin Ratio Free T4 TSH 3rd Generation 03/12/17 03/12/17 09:00 09:00 WBC RBC Hgb Hct MCV MCH MCHC RDW Plt Count MPV Gran % Lymph % (Auto) [place] % (Auto) Eos % (Auto) Baso % (Auto) Gran # Lymph # [place] # Eos # Baso # Sodium 144 Potassium 3.4 L Chloride 107 Carbon Dioxide 27 Anion Gap 14 BUN 14 Creatinine 0.7 Est GFR ( Amer) > 60 Est GFR (Non-Af Amer) > 60 POC Glucose (mg/dL) Random Glucose 124 H Calcium 6.4 L* Phosphorus 5.5 H Magnesium 1.8 Total Bilirubin 0.5 AST 25 ALT 28 Alkaline Phosphatase 48 Total Protein 7.1 Albumin 4.2 Globulin 2.9 Albumin/Globulin Ratio 1.4 Free T4 0.87 TSH 3rd Generation 13.90 H Assessment & Plan - Assessment and Plan (Free Text) Assessment: 61 yo female with PMH of HTN, DM2, and hypothyroidism presents to [facility] ED for AMS found to have subdural hemtaoma, spontaneous vs traumatic - CT head shoed 1.7cm hematoma with subfalcine herniation and right to left midline shift - keppra for seizure prophylaxis, discontinue upon discharge - PT/OT - follow neurosurgery recommendations case reviewed and discussed with attending <Shekhar Newby - Last Filed: 03/12/17 18:05> Meds - Medications Medications: Current Medications Acetaminophen/Butalbital/Caffeine (Fioricet) 1 tab PO Q4H PRN PRN Reason: Headache Last Admin: 03/12/17 13:48 Dose: 1 tab Sodium Chloride (Sodium Chloride 0.9%) 1,000 mls @ 100 mls/hr IV .Q10H [facility] Last Admin: 03/12/17 03:00 Dose: 100 mls/hr Levetiracetam (Keppra 500mg Ivpb) 500 mg in 100 mls @ 400 mls/hr IVPB Q12 [facility] Insulin Human Lispro (Humalog Low) 0 units SC Q4H JIN PRN Reason: Protocol Last Admin: 03/12/17 14:25 Dose: Not Given Levothyroxine Sodium (Synthroid) 50 mcg IVP DAILY [facility] Last Admin: 03/12/17 09:51 Dose: 50 mcg Pantoprazole Sodium (Protonix Inj) 40 mg IVP DAILY [facility] Last Admin: 03/12/17 09:51 Dose: 40 mg Results - Vital Signs Recent Vital Signs: Last Vital Signs Temp 99.1 F 03/12/17 13:56 Pulse 70 03/12/17 14:00 Resp 15 03/12/17 13:56 BP 129/66 03/12/17 13:56 Pulse Ox 100 03/12/17 07:50 - Labs Result Diagrams: 03/12/17 09:00 03/12/17 09:00 Labs: Laboratory Results - last 24 hr 03/12/17 03/12/17 03/12/17 03:27 06:00 07:31 WBC RBC Hgb Hct MCV MCH MCHC RDW Plt Count MPV Gran % Lymph % (Auto) [place] % (Auto) Eos % (Auto) Baso % (Auto) Gran # Lymph # [place] # Eos # Baso # Sodium Potassium Chloride Carbon Dioxide Anion Gap BUN Creatinine Est GFR ( Amer) Est GFR (Non-Af Amer) POC Glucose (mg/dL) 121 H 147 H Random Glucose Hemoglobin A1c Calcium Phosphorus Magnesium Total Bilirubin AST ALT Alkaline Phosphatase Total Protein Albumin Globulin Albumin/Globulin Ratio 25-OH Vitamin D Total 37.1 Free T4 TSH 3rd Generation 03/12/17 03/12/17 03/12/17 09:00 09:00 09:00 WBC 13.6 H D RBC 5.48 Hgb 12.0 Hct 36.8 MCV 67.2 L MCH 21.9 L MCHC 32.6 RDW 14.6 H Plt Count 248 MPV 9.9 Gran % 71.8 H Lymph % (Auto) 21.9 L [place] % (Auto) 5.7 Eos % (Auto) 0.4 L Baso % (Auto) 0.2 Gran # 9.79 H Lymph # 3.0 [place] # 0.8 H Eos # 0.1 Baso # 0.03 Sodium 144 Potassium 3.4 L Chloride 107 Carbon Dioxide 27 Anion Gap 14 BUN 14 Creatinine 0.7 Est GFR ( Amer) > 60 Est GFR (Non-Af Amer) > 60 POC Glucose (mg/dL) Random Glucose 124 H Hemoglobin A1c Calcium 6.4 L* Phosphorus 5.5 H Magnesium 1.8 Total Bilirubin 0.5 AST 25 ALT 28 Alkaline Phosphatase 48 Total Protein 7.1 Albumin 4.2 Globulin 2.9 Albumin/Globulin Ratio 1.4 25-OH Vitamin D Total Free T4 0.87 TSH 3rd Generation 13.90 H 03/12/17 03/12/17 03/12/17 09:00 11:12 16:27 WBC RBC Hgb Hct MCV MCH MCHC RDW Plt Count MPV Gran % Lymph % (Auto) [place] % (Auto) Eos % (Auto) Baso % (Auto) Gran # Lymph # [place] # Eos # Baso # Sodium Potassium Chloride Carbon Dioxide Anion Gap BUN Creatinine Est GFR ( Amer) Est GFR (Non-Af Amer) POC Glucose (mg/dL) 104 156 H Random Glucose Hemoglobin A1c 7.2 H Calcium Phosphorus Magnesium Total Bilirubin AST ALT Alkaline Phosphatase Total Protein Albumin Globulin Albumin/Globulin Ratio 25-OH Vitamin D Total Free T4 TSH 3rd Generation Attending/Attestation - Attestation I have personally seen and examined this patient.: Yes I have fully participated in the care of the patient.: Yes I have reviewed all pertinent clinical information: Yes
[2017-03-12] MEDS: Apap-Butalbital-Caffeine 325-50-40mg Tab PO PRN ×2 (13:48→18:13)
[2017-03-12 14:35] VITALS: BMI 28.3
[2017-03-12] MEDS ORDERED: Pneumococcal 23-Valent Vaccine IM ONE (14:35)
[2017-03-12] MEDS ORDERED: Influenza Vaccine 60 mcg/0.5 mL SYR (4YR UP) IM ONE (14:35)
--- NOTE | 2017-03-12 19:01 | CARD ---
APPROVED REPORT EKG Measurement Heart [id number] <Conclusion> Normal sinus rhythm Left axis deviation Inferior infarct, age undetermined Abnormal ECG
[2017-03-12] MEDS: levETIRAcetam 500mg IVPB 500 MG/100 ML BAG IVPB SCH (22:35)
[2017-03-13] MEDS: Apap-Butalbital-Caffeine 325-50-40mg Tab PO PRN ×4 (02:42→22:35)
[2017-03-13] MEDS: Insulin Lispro (humaLOG) LOW Coverage SC SCH ×6 (03:09→23:35)
[2017-03-13 06:02] LABS: BASO # 0.02 K/mm3 (0.0-2.0); BASO % 0.2 % (0.0-3.0); EOS # 0.1 (0.0-0.7); GRAN # 5.93 (1.4-6.5); GRAN % 62.6 % (50.0-68.0); HEMATOCRIT 32.2 % (36.0-48.0); LYMPH # 2.6 (1.2-3.4); LYMPH % 27.7 % (22.0-35.0); MEAN CELL VOLUME 66.9 fl (80.0-105.0); MEAN CORPUSCULAR HEMOGLOBIN 21.4 pg (25.0-35.0); MEAN PLATELET VOLUME 10.2 fl (7.0-11.0); MONO # 0.8 (0.1-0.6); MONO % 8.5 % (1.0-6.0); RED CELL DISTRIBUTION WIDTH 14.4 % (11.5-14.5); WHITE BLOOD COUNT 9.5 10^3/ul (4.5-11.0)
[2017-03-13 06:56] LABS: ALB/GLOB RATIO 1.2 (1.1-1.8); ALKALINE PHOSPHATASE 41 U/L (38-126); ALT/SGPT 29 U/L (7-56); AST/SGOT 16 U/L (14-36); BILIRUBIN,TOTAL 0.9 mg/dL (0.2-1.3); BLOOD UREA NITROGEN 10 mg/dL (7-21); CALCIUM 6.3 mg/dL (8.4-10.5); CARBON DIOXIDE 25 mmol/L (21-33); CHLORIDE 108 mmol/L (98-107); GFR AFRICAN-AMERICAN > 60; GLUCOSE,RANDOM 121 mg/dL (70-110); MAGNESIUM 1.6 mg/dL (1.7-2.2); PHOSPHOROUS 4.4 mg/dL (2.5-4.5); POTASSIUM 3.2 mmol/L (3.6-5.0); SODIUM 140 mmol/L (132-148); TOTAL PROTEIN 6.1 g/dL (5.8-8.3)
[2017-03-13] MEDS ORDERED: Magnesium Sulfate 2 GM in Sodium Chloride 0.9% 100 ML IVPB ONE (07:20)
--- NOTE | 2017-03-13 07:57 | CT ---
EXAM: CT Head Without Intravenous Contrast CLINICAL HISTORY: 61 years old, female; Screening exam; Prior surgery; Surgery date: Post-operative (0-2 days); Surgery type: Drainage; Additional info: F/u sdh, S/P evacuation TECHNIQUE: Axial computed tomography images of the head/brain without intravenous contrast. All CT scans at this facility use one or more dose reduction techniques, viz.: automated exposure control; ma/kV adjustment per patient size (including targeted exams where dose is matched to indication; i.e. head); or iterative reconstruction technique. 142 images are submitted. COMPARISON: CT - HEAD W/O CONTRAST 2017-03-12 00:37 FINDINGS: Brain: There is mixed density right convexity subdural collection with acute on subacute subdural hemorrhage seen on image 10 series 4. There is interval postoperative changes with evacuation and subdural drain as well as postoperative changes. There is subfalcine herniation with [id number] midline shift of 7 mm. Right frontal subdural drainage catheter. Bilateral basal ganglia calcifications. Cerebral and cerebellar volume loss. Patchy hypodensity is seen in the periventricular and subcortical white matter. Ventricles: Unremarkable. No ventriculomegaly. Bones/joints: Right convexity craniectomy with osseous hardware. Soft tissues: Diffuse scalp edema and right convexity scalp soft tissue swelling emphysema and skin franco. Sinuses: Unremarkable. No acute sinusitis. Mastoid air cells: Unremarkable. No mastoid effusion. IMPRESSION: 1. There is mixed density right convexity subdural collection with acute on subacute subdural hemorrhage seen on image 10 series 4. There is interval postoperative changes with evacuation and subdural drain as well as postoperative changes. 2. There is subfalcine herniation with [id number] midline shift of 7 mm with interval improvement. Correlation with clinical neurosurgical expectation evaluation and further workup or followup as recommended by patient's clinical data.
--- NOTE | 2017-03-13 08:21 | CON ---
DATE: 03/12/2017 HISTORY OF PRESENT ILLNESS: This is a 61-year-old lady with history of diabetes, hypertension, and hypothyroidism who presented to [facility] with altered mental status. Patient was brought in by her daughter who noticed that her mother is confused, disoriented when she tried to wake her up in the evening. Prior to that episode, patient complained of usual dizziness and headaches. No fever. No chills. No sweats. No nausea. No vomiting. No diarrhea. No constipation. PAST MEDICAL HISTORY: Diabetes, hypertension, and hypothyroidism. PAST SURGICAL HISTORY: The patient had thyroidectomy. FAMILY HISTORY: Noncontributory. SOCIAL HISTORY: Patient is a heavy smoker of 10 to 20 cigarettes a day for about 30 years. No drug or alcohol abuse. HOME MEDICATIONS: Aspirin, Flexeril, levothyroxine, Diovan, Januvia, Crestor, Naprosyn, Dulera, metformin, Invokana, and calcium carbonate. ALLERGIES: NKDA. REVIEW OF SYSTEMS: Review of 12-organ systems other than mentioned in the history of present illness is negative. PHYSICAL EXAMINATION: VITAL SIGNS: Blood pressure 120/66, heart rate 81, oxygen saturation 96%, respiratory rate 11. HEENT: Head and neck atraumatic. She is complaining of headache, which will be addressed as well. LUNGS: Clear to auscultation bilaterally. HEART: Regular rate and rhythm. S1 and S2 normal. ABDOMEN: Soft, nontender, and nondistended. MUSCULOSKELETAL: No C/C/E. NEUROLOGIC: The patient moves all extremities spontaneously. SKIN: Moist. PSYCHIATRIC: The patient is alert, awake, and oriented x3. LABORATORY DATA: WBC 13.6, hemoglobin 12, platelet count 248. Sodium 144, potassium 3.4, chloride 107, carbon dioxide 27, BUN 14, creatinine 0.7, glucose 124. Calcium 6.4, AST 25, ALT 28, troponin less than 0.01. MEDICATIONS: Dilaudid p.r.n., regular insulin sliding scale low protocol, Synthroid, Protonix, normal saline 100 mL per hour. ASSESSMENT AND PLAN: This is a 61-year-old lady who presented with subdural hematoma, now status post evacuation with a drain left in the subdural space. At the present time, patient's mental status substantially improved; however, she is still complaining of headache which is most likely postoperative. Dilaudid p.r.n. was prescribed by anesthesiologist; however, we will switch to Fioricet to avoid interference with neuro exam We will continue to maintain euvolemia, euglycemia, normothermia, and oxygen saturation of more than 90%. We will continue with flat head end until cleared by Neurosurgery; n.p.o. until cleared by Neurosurgery. mobilization when cleared by Neurosurgery. PT/OT, incentive spirometry, chest PT, physical therapy. We will continue with DVT and GI prophylaxis. ccm time 40 min Raul Guillory MD MTDD
--- NOTE | 2017-03-13 08:26 | OP ---
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 The history of trauma was rather iffy, but in any case, she was quite confused, no verbal output, no command following, and it was decided to take her emergently to the OR for craniotomy and evacuation. The nature of this procedure, the rationale behind it, details of the procedure, potential risks and complications were discussed with the patient's daughter and she agreed to proceed. DESCRIPTION OF PROCEDURE: The patient was emergently brought to the operating room. She was intubated and anesthetized. Right side of the entire head was hair clipped and head was placed in a donut, elevated, turned maximally towards the left. After prepping and draping, a lazy S-type incision was traced out just above and slightly down into the superior temporal line. The incision was made with a 10-blade knife, carried down to the level of the calvarium and temporalis. Bovie cautery was used to control some of the galeal bleeders. Self-retaining Gelpi retractors were placed. The upper part of the temporalis muscle was resected inferiorly. was used to place 2 reji holes in the anterior and posterior extent of exposed calvarium. [place] was used to strip the dura off the inner table. The craniotome was used to elevate the flap. Immediately, bulging blue dura was identified. The dura was then incised with a 15 blade and almost immediately typical crankcase type subacute subdural fluid emerged under very high pressure. This was collected in a Lukens trap. The dura was then further opened in a cruciate fashion and tacked up with sutures in all four directions. I then performed copious amounts of irrigation in a 360-degree fashion heading frontally, temporally, posteriorly and medially. This irrigation was continued, probably in excess of 2 liters until the irrigation returned clear. Additionally, some of the outer membrane was opened up a little further and coagulated with bipolar cautery. At this point, a red rubber catheter with some additional holes cut in ____ a posterior stab incision through the posterior reji hole into the subdural space and placed in position. The dura was then re-approximated using a 4-0 Nurolon. Epidural bleeding was controlled with thrombinated powdered Gelfoam and then a layer of solid Gelfoam further placed in the epidural space. The bone flap was re-approximated using three CranioFix type plates. The wound was irrigated with antibiotic solution. ____ closed using interrupted, inverted 3-0 Vicryl, the skin closed with franco. A subdural drain was then cinched in place with a U-stitch and hooked up to a passive Jaquez drainage system. The wound was dressed with Bacitracin and self-adhering Telfa dressing. The patient was then aroused from anesthesia and extubated easily. She was noted to be moving all four extremities and following my commands in the recovery room. All counts were correct. There were no complications. Constantin Luna MD
[2017-03-13] MEDS: Levothyroxine 100 mcg (0.1 mg) Inj IVP SCH (10:12)
[2017-03-13] MEDS ORDERED: Bacitracin 500 Units/gm Oint Foilpak UD ONE (10:56)
--- NOTE | 2017-03-13 11:14 | CP.CCUPN ---
<DukeDanny - Last Filed: 03/13/17 14:16> CCU Subjective - Physician Review Subjective (Free Text): Critical Care Progress Note for Dr. Guillory Patient seen and examined at bedside. No acute event overnight. Patient resting in bed comfortably. She is s/p Evacuation for SDH POD #1. Patient only complaining of mild headache. CT scan repeated this morning and shows interval improvement. She is tolerating diet. Patient has no other complaints. CCU Objective - Vital Signs / Intake & Output Intake and Output (Last 8hrs): Intake & Output 03/12/17 03/13/17 03/13/17 22:59 06:59 14:59 Intake Total 1400 Output Total 1200 Balance 200 Intake: IV 1300 Left Hand 0 Left Wrist 1300 Oral 100 Output: Drainage 200 Right Head 200 Urine 1000 Urine, Voided 1000 Other: # Bowel Movements 0 - Physical Exam Head: Positive for: Normocephalic, Other (drain in place, dressing dry and intact) Pupils: Positive for: PERRL Extroacular Muscles: Positive for: EOMI Conjunctiva: Positive for: Normal Mouth: Positive for: Moist Mucous Membranes Neck: Positive for: Normal Range of Motion Respiratory/Chest: Positive for: Clear to Auscultation, Good Air Exchange. Negative for: Respiratory Distress, Accessory Muscle Use Cardiovascular: Positive for: Regular Rate and Rhythm, Normal S1, S2. Negative for: Murmurs Abdomen: Positive for: Normal Bowel Sounds. Negative for: Tenderness, Distention, Peritoneal Signs Back: Positive for: Normal Inspection Upper Extremity: Positive for: Normal Inspection. Negative for: Cyanosis, Edema Lower Extremity: Positive for: Normal Inspection. Negative for: Edema Neurological: Positive for: GCS=15, CN II-XII Intact, Speech Normal, Motor Func Grossly Intact, Normal Sensory Function Skin: Positive for: Warm, Dry, Normal Color. Negative for: Rashes Psychiatric: Positive for: Alert, Oriented x 3, Normal Insight, Normal Concentration, Normal Affect, Normal Mood - Medications Active Medications: Active Medications Generic Name Dose Route Start Last Admin Trade Name Freq PRN Reason Stop Dose Admin Acetaminophen/Butalbital/Caffeine 1 tab 03/12/17 10:31 03/13/17 08:29 Fioricet PO 1 tab Q4H PRN Administration Headache Sodium Chloride 1,000 mls @ 100 mls/hr 03/12/17 02:15 03/12/17 19:45 Sodium Chloride 0.9% IV 100 mls/hr .Q10H JIN Administration Levetiracetam 500 mg in 100 mls @ 400 mls/hr 03/12/17 22:00 03/12/17 22:35 Keppra 500mg Ivpb IVPB 400 mls/hr Q12 JIN Administration Insulin Human Lispro 0 units 03/12/17 02:15 03/13/17 11:06 Humalog Low SC Not Given Q4H JIN Protocol Levothyroxine Sodium 50 mcg 03/12/17 10:00 03/13/17 10:12 Synthroid IVP 50 mcg DAILY JIN Administration Pantoprazole Sodium 40 mg 03/12/17 10:00 03/13/17 10:13 Protonix Inj IVP 40 mg DAILY JIN Administration - Patient Studies Lab Studies: Lab Studies 03/13/17 03/13/17 03/13/17 Range/Units 11:06 08:09 06:48 WBC (4.5-11.0) 10^3/ul RBC (3.5-6.1) 10^6/uL Hgb (12.0-16.0) g/dL Hct (36.0-48.0) % MCV (80.0-105.0) fl MCH (25.0-35.0) pg MCHC (31.0-37.0) g/dl RDW (11.5-14.5) % Plt Count (120.0-450.0) 10^3/uL MPV (7.0-11.0) fl Gran % (50.0-68.0) % Lymph % (Auto) (22.0-35.0) % Piute % (Auto) (1.0-6.0) % Eos % (Auto) (1.5-5.0) % Baso % (Auto) (0.0-3.0) % Gran # (1.4-6.5) Lymph # (1.2-3.4) Piute # (0.1-0.6) Eos # (0.0-0.7) Baso # (0.0-2.0) K/mm3 Sodium (132-148) mmol/L Potassium (3.6-5.0) mmol/L Chloride (98-107) mmol/L Carbon Dioxide (21-33) mmol/L Anion Gap (10-20) BUN (7-21) mg/dL Creatinine (0.7-1.2) mg/dl Est GFR ( Amer) Est GFR (Non-Af Amer) POC Glucose (mg/dL) 149 H 102 108 (65-110) mg/dL Random Glucose (70-110) mg/dL Hemoglobin A1c (4.2-6.5) % Calcium (8.4-10.5) mg/dL Phosphorus (2.5-4.5) mg/dL Magnesium (1.7-2.2) mg/dL Total Bilirubin (0.2-1.3) mg/dL AST (14-36) U/L ALT (7-56) U/L Alkaline Phosphatase (38-126) U/L Total Protein (5.8-8.3) g/dL Albumin (3.0-4.8) g/dL Globulin gm/dL Albumin/Globulin Ratio (1.1-1.8) 25-OH Vitamin D Total (30.0-100.0) NG/ML 03/13/17 03/13/17 03/13/17 Range/Units 05:30 05:30 02:52 WBC 9.5 D (4.5-11.0) 10^3/ul RBC 4.81 (3.5-6.1) 10^6/uL Hgb 10.3 L (12.0-16.0) g/dL Hct 32.2 L (36.0-48.0) % MCV 66.9 L (80.0-105.0) fl MCH 21.4 L (25.0-35.0) pg MCHC 32.0 (31.0-37.0) g/dl RDW 14.4 (11.5-14.5) % Plt Count 205 (120.0-450.0) 10^3/uL MPV 10.2 (7.0-11.0) fl Gran % 62.6 (50.0-68.0) % Lymph % (Auto) 27.7 (22.0-35.0) % Piute % (Auto) 8.5 H (1.0-6.0) % Eos % (Auto) 1.0 L (1.5-5.0) % Baso % (Auto) 0.2 (0.0-3.0) % Gran # 5.93 (1.4-6.5) Lymph # 2.6 (1.2-3.4) Piute # 0.8 H (0.1-0.6) Eos # 0.1 (0.0-0.7) Baso # 0.02 (0.0-2.0) K/mm3 Sodium 140 (132-148) mmol/L Potassium 3.2 L (3.6-5.0) mmol/L Chloride 108 H (98-107) mmol/L Carbon Dioxide 25 (21-33) mmol/L Anion Gap 10 (10-20) BUN 10 (7-21) mg/dL Creatinine 0.6 L (0.7-1.2) mg/dl Est GFR ( Amer) > 60 Est GFR (Non-Af Amer) > 60 POC Glucose (mg/dL) 118 H (65-110) mg/dL Random Glucose 121 H (70-110) mg/dL Hemoglobin A1c (4.2-6.5) % Calcium 6.3 L* (8.4-10.5) mg/dL Phosphorus 4.4 (2.5-4.5) mg/dL Magnesium 1.6 L (1.7-2.2) mg/dL Total Bilirubin 0.9 (0.2-1.3) mg/dL AST 16 (14-36) U/L ALT 29 (7-56) U/L Alkaline Phosphatase 41 (38-126) U/L Total Protein 6.1 (5.8-8.3) g/dL Albumin 3.3 (3.0-4.8) g/dL Globulin 2.7 gm/dL Albumin/Globulin Ratio 1.2 (1.1-1.8) 25-OH Vitamin D Total (30.0-100.0) NG/ML 03/12/17 03/12/17 03/12/17 Range/Units 21:59 16:27 11:12 WBC (4.5-11.0) 10^3/ul RBC (3.5-6.1) 10^6/uL Hgb (12.0-16.0) g/dL Hct (36.0-48.0) % MCV (80.0-105.0) fl MCH (25.0-35.0) pg MCHC (31.0-37.0) g/dl RDW (11.5-14.5) % Plt Count (120.0-450.0) 10^3/uL MPV (7.0-11.0) fl Gran % (50.0-68.0) % Lymph % (Auto) (22.0-35.0) % Piute % (Auto) (1.0-6.0) % Eos % (Auto) (1.5-5.0) % Baso % (Auto) (0.0-3.0) % Gran # (1.4-6.5) Lymph # (1.2-3.4) Piute # (0.1-0.6) Eos # (0.0-0.7) Baso # (0.0-2.0) K/mm3 Sodium (132-148) mmol/L Potassium (3.6-5.0) mmol/L Chloride (98-107) mmol/L Carbon Dioxide (21-33) mmol/L Anion Gap (10-20) BUN (7-21) mg/dL Creatinine (0.7-1.2) mg/dl Est GFR ( Amer) Est GFR (Non-Af Amer) POC Glucose (mg/dL) 104 156 H 104 (65-110) mg/dL Random Glucose (70-110) mg/dL Hemoglobin A1c (4.2-6.5) % Calcium (8.4-10.5) mg/dL Phosphorus (2.5-4.5) mg/dL Magnesium (1.7-2.2) mg/dL Total Bilirubin (0.2-1.3) mg/dL AST (14-36) U/L ALT (7-56) U/L Alkaline Phosphatase (38-126) U/L Total Protein (5.8-8.3) g/dL Albumin (3.0-4.8) g/dL Globulin gm/dL Albumin/Globulin Ratio (1.1-1.8) 25-OH Vitamin D Total (30.0-100.0) NG/ML 03/12/17 03/12/17 Range/Units 09:00 06:00 WBC (4.5-11.0) 10^3/ul RBC (3.5-6.1) 10^6/uL Hgb (12.0-16.0) g/dL Hct (36.0-48.0) % MCV (80.0-105.0) fl MCH (25.0-35.0) pg MCHC (31.0-37.0) g/dl RDW (11.5-14.5) % Plt Count (120.0-450.0) 10^3/uL MPV (7.0-11.0) fl Gran % (50.0-68.0) % Lymph % (Auto) (22.0-35.0) % Piute % (Auto) (1.0-6.0) % Eos % (Auto) (1.5-5.0) % Baso % (Auto) (0.0-3.0) % Gran # (1.4-6.5) Lymph # (1.2-3.4) Piute # (0.1-0.6) Eos # (0.0-0.7) Baso # (0.0-2.0) K/mm3 Sodium (132-148) mmol/L Potassium (3.6-5.0) mmol/L Chloride (98-107) mmol/L Carbon Dioxide (21-33) mmol/L Anion Gap (10-20) BUN (7-21) mg/dL Creatinine (0.7-1.2) mg/dl Est GFR ( Amer) Est GFR (Non-Af Amer) POC Glucose (mg/dL) (65-110) mg/dL Random Glucose (70-110) mg/dL Hemoglobin A1c 7.2 H (4.2-6.5) % Calcium (8.4-10.5) mg/dL Phosphorus (2.5-4.5) mg/dL Magnesium (1.7-2.2) mg/dL Total Bilirubin (0.2-1.3) mg/dL AST (14-36) U/L ALT (7-56) U/L Alkaline Phosphatase (38-126) U/L Total Protein (5.8-8.3) g/dL Albumin (3.0-4.8) g/dL Globulin gm/dL Albumin/Globulin Ratio (1.1-1.8) 25-OH Vitamin D Total 37.1 (30.0-100.0) NG/ML Laboratory Results - last 24 hr 03/12/17 03/12/17 03/12/17 06:00 09:00 11:12 WBC RBC Hgb Hct MCV MCH MCHC RDW Plt Count MPV Gran % Lymph % (Auto) Piute % (Auto) Eos % (Auto) Baso % (Auto) Gran # Lymph # Piute # Eos # Baso # Sodium Potassium Chloride Carbon Dioxide Anion Gap BUN Creatinine Est GFR ( Amer) Est GFR (Non-Af Amer) POC Glucose (mg/dL) 104 Random Glucose Hemoglobin A1c 7.2 H Calcium Phosphorus Magnesium Total Bilirubin AST ALT Alkaline Phosphatase Total Protein Albumin Globulin Albumin/Globulin Ratio 25-OH Vitamin D Total 37.1 03/12/17 03/12/17 03/13/17 16:27 21:59 02:52 WBC RBC Hgb Hct MCV MCH MCHC RDW Plt Count MPV Gran % Lymph % (Auto) Piute % (Auto) Eos % (Auto) Baso % (Auto) Gran # Lymph # Piute # Eos # Baso # Sodium Potassium Chloride Carbon Dioxide Anion Gap BUN Creatinine Est GFR ( Amer) Est GFR (Non-Af Amer) POC Glucose (mg/dL) 156 H 104 118 H Random Glucose Hemoglobin A1c Calcium Phosphorus Magnesium Total Bilirubin AST ALT Alkaline Phosphatase Total Protein Albumin Globulin Albumin/Globulin Ratio 25-OH Vitamin D Total 03/13/17 03/13/17 03/13/17 05:30 05:30 06:48 WBC 9.5 D RBC 4.81 Hgb 10.3 L Hct 32.2 L MCV 66.9 L MCH 21.4 L MCHC 32.0 RDW 14.4 Plt Count 205 MPV 10.2 Gran % 62.6 Lymph % (Auto) 27.7 Piute % (Auto) 8.5 H Eos % (Auto) 1.0 L Baso % (Auto) 0.2 Gran # 5.93 Lymph # 2.6 Piute # 0.8 H Eos # 0.1 Baso # 0.02 Sodium 140 Potassium 3.2 L Chloride 108 H Carbon Dioxide 25 Anion Gap 10 BUN 10 Creatinine 0.6 L Est GFR ( Amer) > 60 Est GFR (Non-Af Amer) > 60 POC Glucose (mg/dL) 108 Random Glucose 121 H Hemoglobin A1c Calcium 6.3 L* Phosphorus 4.4 Magnesium 1.6 L Total Bilirubin 0.9 AST 16 ALT 29 Alkaline Phosphatase 41 Total Protein 6.1 Albumin 3.3 Globulin 2.7 Albumin/Globulin Ratio 1.2 25-OH Vitamin D Total 03/13/17 03/13/17 08:09 11:06 WBC RBC Hgb Hct MCV MCH MCHC RDW Plt Count MPV Gran % Lymph % (Auto) Piute % (Auto) Eos % (Auto) Baso % (Auto) Gran # Lymph # Piute # Eos # Baso # Sodium Potassium Chloride Carbon Dioxide Anion Gap BUN Creatinine Est GFR ( Amer) Est GFR (Non-Af Amer) POC Glucose (mg/dL) 102 149 H Random Glucose Hemoglobin A1c Calcium Phosphorus Magnesium Total Bilirubin AST ALT Alkaline Phosphatase Total Protein Albumin Globulin Albumin/Globulin Ratio 25-OH Vitamin D Total Fingerstick Blood Sugar Results: 108 Critical Care Progress Note - Nutrition Nutrition: Nutrition Category Date Time Status Heart Healthy Diet [DIET] Diets 03/12/17 Lunch Ordered Assessment/Plan - Assessment and Plan (Free Text) Plan: 61 F with PMH of HTN, DM, and hypothyroidism with SDH and midline shift s/p Evacuation POD#1 Neuro: Maintain head of bed at 30 degrees, Monitor drain output, head CT this am shows interval improvement, Normothermic, Neurochecks, keppra, fioricet prn, further recommendations as per neurosurgery Cardio: Regular rate and rhythm, Maintain Map > 65 Pulm: Maintain SaO2 > 90%, Incentive spirometer GI: GI ppx, HHD Renal: Montor and replete electrolytes as needed, NS 100cc/hr Endo: Maintain euglycemia 140-180, Synthroid ID: [id number], no leukocytosis <[email or web address] B - Last Filed: 03/13/17 18:25> CCU Objective - Vital Signs / Intake & Output Intake and Output (Last 8hrs): Intake & Output 03/13/17 03/13/17 03/13/17 06:59 14:59 22:59 Intake Total 1400 Output Total 1200 Balance 200 Weight 150 lb Intake: IV 1300 Left Hand 0 Left Wrist 1300 Oral 100 Output: Drainage 200 Right Head 200 Urine 1000 Urine, Voided 1000 Other: # Bowel Movements 0 - Medications Active Medications: Active Medications Generic Name Dose Route Start Last Admin Trade Name Freq PRN Reason Stop Dose Admin Acetaminophen/Butalbital/Caffeine 1 tab 03/12/17 10:31 03/13/17 15:46 Fioricet PO 1 tab Q4H PRN Administration Headache Calcium Carbonate 600 mg 03/14/17 10:00 Caltrate PO DAILY [facility] Cholecalciferol 2,000 intlu 03/14/17 10:00 Vitamin D PO DAILY [facility] Sodium Chloride 1,000 mls @ 100 mls/hr 03/12/17 02:15 03/12/17 19:45 Sodium Chloride 0.9% IV 100 mls/hr .Q10H JIN Administration Insulin Human Lispro 0 units 03/12/17 02:15 03/13/17 15:44 Humalog Low SC Not Given Q4H [facility] Protocol Levetiracetam 500 mg 03/13/17 18:00 Keppra PO BID [facility] Levothyroxine Sodium 112 mcg 03/14/17 06:00 Synthroid PO 0600 [facility] Pantoprazole Sodium 40 mg 03/14/17 06:00 Protonix Ec Tab PO 0600 [facility] - Patient Studies Lab Studies: Microbiology Studies 03/12/17 08:30 MRSA Culture (Admit) - Final Naris MRSA NOT DETECTED Lab Studies 03/13/17 03/13/17 03/13/17 Range/Units 16:25 11:06 08:09 WBC (4.5-11.0) 10^3/ul RBC (3.5-6.1) 10^6/uL Hgb (12.0-16.0) g/dL Hct (36.0-48.0) % MCV (80.0-105.0) fl MCH (25.0-35.0) pg MCHC (31.0-37.0) g/dl RDW (11.5-14.5) % Plt Count (120.0-450.0) 10^3/uL MPV (7.0-11.0) fl Gran % (50.0-68.0) % Lymph % (Auto) (22.0-35.0) % Piute % (Auto) (1.0-6.0) % Eos % (Auto) (1.5-5.0) % Baso % (Auto) (0.0-3.0) % Gran # (1.4-6.5) Lymph # (1.2-3.4) Piute # (0.1-0.6) Eos # (0.0-0.7) Baso # (0.0-2.0) K/mm3 Sodium (132-148) mmol/L Potassium (3.6-5.0) mmol/L Chloride (98-107) mmol/L Carbon Dioxide (21-33) mmol/L Anion Gap (10-20) BUN (7-21) mg/dL Creatinine (0.7-1.2) mg/dl Est GFR ( Amer) Est GFR (Non-Af Amer) POC Glucose (mg/dL) 116 H 149 H 102 (65-110) mg/dL Random Glucose (70-110) mg/dL Calcium (8.4-10.5) mg/dL Phosphorus (2.5-4.5) mg/dL Magnesium (1.7-2.2) mg/dL Total Bilirubin (0.2-1.3) mg/dL AST (14-36) U/L ALT (7-56) U/L Alkaline Phosphatase (38-126) U/L Total Protein (5.8-8.3) g/dL Albumin (3.0-4.8) g/dL Globulin gm/dL Albumin/Globulin Ratio (1.1-1.8) PTH Intact Whole Molec (14-64) pg/mL 03/13/17 03/13/17 03/13/17 Range/Units 06:48 05:30 05:30 WBC 9.5 D (4.5-11.0) 10^3/ul RBC 4.81 (3.5-6.1) 10^6/uL Hgb 10.3 L (12.0-16.0) g/dL Hct 32.2 L (36.0-48.0) % MCV 66.9 L (80.0-105.0) fl MCH 21.4 L (25.0-35.0) pg MCHC 32.0 (31.0-37.0) g/dl RDW 14.4 (11.5-14.5) % Plt Count 205 (120.0-450.0) 10^3/uL MPV 10.2 (7.0-11.0) fl Gran % 62.6 (50.0-68.0) % Lymph % (Auto) 27.7 (22.0-35.0) % Piute % (Auto) 8.5 H (1.0-6.0) % Eos % (Auto) 1.0 L (1.5-5.0) % Baso % (Auto) 0.2 (0.0-3.0) % Gran # 5.93 (1.4-6.5) Lymph # 2.6 (1.2-3.4) Piute # 0.8 H (0.1-0.6) Eos # 0.1 (0.0-0.7) Baso # 0.02 (0.0-2.0) K/mm3 Sodium 140 (132-148) mmol/L Potassium 3.2 L (3.6-5.0) mmol/L Chloride 108 H (98-107) mmol/L Carbon Dioxide 25 (21-33) mmol/L Anion Gap 10 (10-20) BUN 10 (7-21) mg/dL Creatinine 0.6 L (0.7-1.2) mg/dl Est GFR ( Amer) > 60 Est GFR (Non-Af Amer) > 60 POC Glucose (mg/dL) 108 (65-110) mg/dL Random Glucose 121 H (70-110) mg/dL Calcium 6.3 L* (8.4-10.5) mg/dL Phosphorus 4.4 (2.5-4.5) mg/dL Magnesium 1.6 L (1.7-2.2) mg/dL Total Bilirubin 0.9 (0.2-1.3) mg/dL AST 16 (14-36) U/L ALT 29 (7-56) U/L Alkaline Phosphatase 41 (38-126) U/L Total Protein 6.1 (5.8-8.3) g/dL Albumin 3.3 (3.0-4.8) g/dL Globulin 2.7 gm/dL Albumin/Globulin Ratio 1.2 (1.1-1.8) PTH Intact Whole Molec (14-64) pg/mL 03/13/17 03/12/17 03/12/17 Range/Units 02:52 21:59 06:00 WBC (4.5-11.0) 10^3/ul RBC (3.5-6.1) 10^6/uL Hgb (12.0-16.0) g/dL Hct (36.0-48.0) % MCV (80.0-105.0) fl MCH (25.0-35.0) pg MCHC (31.0-37.0) g/dl RDW (11.5-14.5) % Plt Count (120.0-450.0) 10^3/uL MPV (7.0-11.0) fl Gran % (50.0-68.0) % Lymph % (Auto) (22.0-35.0) % Piute % (Auto) (1.0-6.0) % Eos % (Auto) (1.5-5.0) % Baso % (Auto) (0.0-3.0) % Gran # (1.4-6.5) Lymph # (1.2-3.4) Piute # (0.1-0.6) Eos # (0.0-0.7) Baso # (0.0-2.0) K/mm3 Sodium (132-148) mmol/L Potassium (3.6-5.0) mmol/L Chloride (98-107) mmol/L Carbon Dioxide (21-33) mmol/L Anion Gap (10-20) BUN (7-21) mg/dL Creatinine (0.7-1.2) mg/dl Est GFR ( Amer) Est GFR (Non-Af Amer) POC Glucose (mg/dL) 118 H 104 (65-110) mg/dL Random Glucose (70-110) mg/dL Calcium (8.4-10.5) mg/dL Phosphorus (2.5-4.5) mg/dL Magnesium (1.7-2.2) mg/dL Total Bilirubin (0.2-1.3) mg/dL AST (14-36) U/L ALT (7-56) U/L Alkaline Phosphatase (38-126) U/L Total Protein (5.8-8.3) g/dL Albumin (3.0-4.8) g/dL Globulin gm/dL Albumin/Globulin Ratio (1.1-1.8) PTH Intact Whole Molec 12 L (14-64) pg/mL Laboratory Results - last 24 hr 03/12/17 03/12/17 03/13/17 06:00 21:59 02:52 WBC RBC Hgb Hct MCV MCH MCHC RDW Plt Count MPV Gran % Lymph % (Auto) Piute % (Auto) Eos % (Auto) Baso % (Auto) Gran # Lymph # Piute # Eos # Baso # Sodium Potassium Chloride Carbon Dioxide Anion Gap BUN Creatinine Est GFR ( Amer) Est GFR (Non-Af Amer) POC Glucose (mg/dL) 104 118 H Random Glucose Calcium Phosphorus Magnesium Total Bilirubin AST ALT Alkaline Phosphatase Total Protein Albumin Globulin Albumin/Globulin Ratio PTH Intact Whole Molec 12 L 03/13/17 03/13/17 03/13/17 05:30 05:30 06:48 WBC 9.5 D RBC 4.81 Hgb 10.3 L Hct 32.2 L MCV 66.9 L MCH 21.4 L MCHC 32.0 RDW 14.4 Plt Count 205 MPV 10.2 Gran % 62.6 Lymph % (Auto) 27.7 Piute % (Auto) 8.5 H Eos % (Auto) 1.0 L Baso % (Auto) 0.2 Gran # 5.93 Lymph # 2.6 Piute # 0.8 H Eos # 0.1 Baso # 0.02 Sodium 140 Potassium 3.2 L Chloride 108 H Carbon Dioxide 25 Anion Gap 10 BUN 10 Creatinine 0.6 L Est GFR ( Amer) > 60 Est GFR (Non-Af Amer) > 60 POC Glucose (mg/dL) 108 Random Glucose 121 H Calcium 6.3 L* Phosphorus 4.4 Magnesium 1.6 L Total Bilirubin 0.9 AST 16 ALT 29 Alkaline Phosphatase 41 Total Protein 6.1 Albumin 3.3 Globulin 2.7 Albumin/Globulin Ratio 1.2 PTH Intact Whole Molec 03/13/17 03/13/17 03/13/17 08:09 11:06 16:25 WBC RBC Hgb Hct MCV MCH MCHC RDW Plt Count MPV Gran % Lymph % (Auto) Piute % (Auto) Eos % (Auto) Baso % (Auto) Gran # Lymph # Piute # Eos # Baso # Sodium Potassium Chloride Carbon Dioxide Anion Gap BUN Creatinine Est GFR ( Amer) Est GFR (Non-Af Amer) POC Glucose (mg/dL) 102 149 H 116 H Random Glucose Calcium Phosphorus Magnesium Total Bilirubin AST ALT Alkaline Phosphatase Total Protein Albumin Globulin Albumin/Globulin Ratio PTH Intact Whole Molec Critical Care Progress Note - Nutrition Nutrition: Nutrition Category Date Time Status Heart Healthy Diet [DIET] Diets 03/12/17 Lunch Ordered Attending/Attestation - Attestation I have personally seen and examined this patient.: Yes I have fully participated in the care of the patient.: Yes I have reviewed all pertinent clinical information: Yes Notes (Text): 03/13/17 18:24 61 yo female with SDH s/p evacuation. drain removed by nsx, oob to chair, eating, mental status substantially improved. IS, chest PT, pulm toiletas per nsx ok to downgrade to [facility] ccm time 40 min
[2017-03-13] MEDS: levETIRAcetam 500mg IVPB 500 MG/100 ML BAG IVPB SCH (12:38)
--- NOTE | 2017-03-13 13:20 | CP.PCM.PN ---
<Ehsan Reyes - Last Filed: 03/13/17 14:34> Subjective - Date & Time of Evaluation Date of Evaluation: 03/13/17 Time of Evaluation: 07:30 - Subjective Subjective: Ehsan Reyes DO PGY1 - Internal Medicine Progress Note Patient seen and examined at bedside. Patient is POD 1 s/p craniotomy and SDH evacuation. She is much more awake and alert today. Complaining of a mild headache and fatigue. She does not recall the events preceding her admission. She does recall that she had a headache and was feeling weak, but does not recall the night of her admission and surgery. She denies any focal weakness, vision changes, hearing loss, numbness, parasthesias, dysarthria. Objective - Vital Signs/Intake and Output Vital Signs (last 24 hours): Temp Pulse Resp BP Pulse Ox 99.2 F 74 12 117/59 L 96 03/13/17 06:00 03/13/17 10:00 03/13/17 06:50 03/13/17 06:00 03/13/17 02:50 Intake and Output: 03/13/17 03/13/17 06:59 18:59 Intake Total 1400 Output Total 1200 Balance 200 - Medications Medications: Current Medications Acetaminophen/Butalbital/Caffeine (Fioricet) 1 tab PO Q4H PRN PRN Reason: Headache Last Admin: 03/13/17 08:29 Dose: 1 tab Calcium Carbonate (Caltrate) 600 mg PO DAILY [facility] Cholecalciferol (Vitamin D) 2,000 intlu PO DAILY [facility] Sodium Chloride (Sodium Chloride 0.9%) 1,000 mls @ 100 mls/hr IV .Q10H [facility] Last Admin: 03/12/17 19:45 Dose: 100 mls/hr Insulin Human Lispro (Humalog Low) 0 units SC Q4H [facility] PRN Reason: Protocol Last Admin: 03/13/17 11:06 Dose: Not Given Levetiracetam (Keppra) 500 mg PO BID [facility] Levothyroxine Sodium (Synthroid) 50 mcg PO 0600 [facility] Pantoprazole Sodium (Protonix Ec Tab) 40 mg PO 0600 [facility] - Labs Labs: 03/13/17 05:30 03/13/17 05:30 PT 12.0 SECONDS (9.4-12.5) 03/12/17 00:15 INR 1.10 (0.93-1.08) H 03/12/17 00:15 APTT 33.0 Seconds (25.1-36.5) 03/12/17 00:15 - Constitutional Appears: Non-toxic, No Acute Distress - Head Exam Head Exam: NORMOCEPHALIC Additional comments: Large bandage over right side of her head. Drain in place, actively draining fluid, bright bloody appearance in the piedra bag, nearly one liter, but fluid noted in the tubing appears more serosanguinous. - Eye Exam Eye Exam: EOMI, Normal appearance, PERRL - ENT Exam ENT Exam: Mucous Membranes Moist - Neck Exam Neck Exam: Full ROM, Normal Inspection - Respiratory Exam Respiratory Exam: Clear to Ausculation Bilateral, NORMAL BREATHING PATTERN - Cardiovascular Exam Cardiovascular Exam: REGULAR RHYTHM, +S1, +S2 - GI/Abdominal Exam GI & Abdominal Exam: Soft, Normal Bowel Sounds. absent: Tenderness - Extremities Exam Extremities Exam: absent: Calf Tenderness, Pedal Edema - Neurological Exam Neurological Exam: Alert, Awake, CN II-XII Intact, Oriented x3, Reflexes Normal. absent: Altered Neuro motor strength exam: Left Upper Extremity: 5, Right Upper Extremity: 5, Left Lower Extremity: 5, Right Lower Extremity: 5 Additional comments: Gait not assessed Sensation grossly intact - Psychiatric Exam Psychiatric exam: Normal Affect, Normal Mood - Skin Skin Exam: Dry, Intact, Normal Color Assessment and Plan - Assessment and Plan (Free Text) Assessment: 61yo female PMHx HTN, DM2, and hypothyroidism presents to [facility] ED for AMS. Plan: Subacute R subdural hematoma - s/p craniectomy and evacuation - Patient initially presented with AMS, now resolved - Patient is POD 1 s/p right craniectomy and evacuation with Dr. Luna - Repeat CT head shows interval improvement in midline shift and subfalcine herniation, though not totally resolved - Continue keppra for seizure prophylaxis - HoB 30degrees - Aspiration, Seizure, and Fall precautions - Neurosurgery Dr. Luna consulted - Neurology Dr. Newby consulted Hx of HTN - Patient remains normotensive off medications - monitor Hx of Hypothyroidism - TSH elevated, with low/normal T4 - Reportedly takes 100mcg synthroid at home - Will start 112mcg daily; instructed patient to follow up with PCP for repeat labs Hx of DM - f/u HgbA1c - Accucheck ACHS - RISS low q4 GI ppx: Protonix 40mg PO DVT ppx: SCDs Patient seen, discussed, and reviewed with attending <Keke Fiore - Last Filed: 03/13/17 17:11> Objective - Vital Signs/Intake and Output Vital Signs (last 24 hours): Temp Pulse Resp BP Pulse Ox 99.2 F 74 12 117/59 L 96 03/13/17 06:00 03/13/17 14:00 03/13/17 06:50 03/13/17 06:00 03/13/17 02:50 Intake and Output: 03/13/17 03/13/17 06:59 18:59 Intake Total 1400 Output Total 1200 Balance 200 - Medications Medications: Current Medications Acetaminophen/Butalbital/Caffeine (Fioricet) 1 tab PO Q4H PRN PRN Reason: Headache Last Admin: 03/13/17 15:46 Dose: 1 tab Calcium Carbonate (Caltrate) 600 mg PO DAILY [facility] Cholecalciferol (Vitamin D) 2,000 intlu PO DAILY [facility] Sodium Chloride (Sodium Chloride 0.9%) 1,000 mls @ 100 mls/hr IV .Q10H [facility] Last Admin: 03/12/17 19:45 Dose: 100 mls/hr Insulin Human Lispro (Humalog Low) 0 units SC Q4H [facility] PRN Reason: Protocol Last Admin: 03/13/17 15:44 Dose: Not Given Levetiracetam (Keppra) 500 mg PO BID [facility] Levothyroxine Sodium (Synthroid) 112 mcg PO 0600 [facility] Pantoprazole Sodium (Protonix Ec Tab) 40 mg PO 0600 [facility] - Labs Labs: 03/13/17 05:30 03/13/17 05:30 PT 12.0 SECONDS (9.4-12.5) 03/12/17 00:15 INR 1.10 (0.93-1.08) H 03/12/17 00:15 APTT 33.0 Seconds (25.1-36.5) 03/12/17 00:15 Attending/Attestation - Attestation I have personally seen and examined this patient.: Yes I have fully participated in the care of the patient.: Yes I have reviewed all pertinent clinical information, including history, physical exam and plan: Yes Notes (Text): 03/13/17 17:11 Patient was seen and examined with medical surgery nurse. Agreed with resident assessment and plan. Management plan was discussed in detail with patient Education was provided.
--- NOTE | 2017-03-13 14:09 | CP.PCM.PN ---
Subjective - Date & Time of Evaluation Date of Evaluation: 03/13/17 Time of Evaluation: 14:06 - Subjective Subjective: POD 1 awake alert mildly confused speech fairly appropriate follows all commands PITTS with ex strength CT showed excellent resolution of SDH SD drain removed wound c and d P: rec T to floor OOB PT,mobilization will follow intermittently Objective - Vital Signs/Intake and Output Vital Signs (last 24 hours): Temp Pulse Resp BP Pulse Ox 99.2 F 74 12 117/59 L 96 03/13/17 06:00 03/13/17 10:00 03/13/17 06:50 03/13/17 06:00 03/13/17 02:50 Intake and Output: 03/13/17 03/13/17 06:59 18:59 Intake Total 1400 Output Total 1200 Balance 200 - Medications Medications: Current Medications Acetaminophen/Butalbital/Caffeine (Fioricet) 1 tab PO Q4H PRN PRN Reason: Headache Last Admin: 03/13/17 08:29 Dose: 1 tab Calcium Carbonate (Caltrate) 600 mg PO DAILY [facility] Cholecalciferol (Vitamin D) 2,000 intlu PO DAILY [facility] Sodium Chloride (Sodium Chloride 0.9%) 1,000 mls @ 100 mls/hr IV .Q10H [facility] Last Admin: 03/12/17 19:45 Dose: 100 mls/hr Insulin Human Lispro (Humalog Low) 0 units SC Q4H [facility] PRN Reason: Protocol Last Admin: 03/13/17 11:06 Dose: Not Given Levetiracetam (Keppra) 500 mg PO BID [facility] Levothyroxine Sodium (Synthroid) 50 mcg PO 0600 [facility] Pantoprazole Sodium (Protonix Ec Tab) 40 mg PO 0600 [facility] - Labs Labs: 03/13/17 05:30 03/13/17 05:30 PT 12.0 SECONDS (9.4-12.5) 03/12/17 00:15 INR 1.10 (0.93-1.08) H 03/12/17 00:15 APTT 33.0 Seconds (25.1-36.5) 03/12/17 00:15
--- NOTE | 2017-03-13 17:57 | CP.PCM.PN ---
<Georgette Cheung - Last Filed: 03/13/17 20:30> Subjective - Date & Time of Evaluation Date of Evaluation: 03/13/17 Time of Evaluation: 09:00 - Subjective Subjective: PGY-2 Neurology progress note for Dr. Newby's service Patient seen and examined at bedside, no acute distress. Patient reports headache, 6/10. She denies any focal weakness, dizziness, vision changes. She does not have any other complaints including chest pain, sob, abd pain, n/v. Objective - Vital Signs/Intake and Output Vital Signs (last 24 hours): Temp Pulse Resp BP Pulse Ox 99.2 F 74 12 117/59 L 96 03/13/17 06:00 03/13/17 14:00 03/13/17 06:50 03/13/17 06:00 03/13/17 02:50 Intake and Output: 03/13/17 03/13/17 06:59 18:59 Intake Total 1400 Output Total 1200 Balance 200 - Medications Medications: Current Medications Acetaminophen/Butalbital/Caffeine (Fioricet) 1 tab PO Q4H PRN PRN Reason: Headache Last Admin: 03/13/17 15:46 Dose: 1 tab Calcium Carbonate (Caltrate) 600 mg PO DAILY [facility] Cholecalciferol (Vitamin D) 2,000 intlu PO DAILY [facility] Sodium Chloride (Sodium Chloride 0.9%) 1,000 mls @ 100 mls/hr IV .Q10H [facility] Last Admin: 03/12/17 19:45 Dose: 100 mls/hr Insulin Human Lispro (Humalog Low) 0 units SC Q4H [facility] PRN Reason: Protocol Last Admin: 03/13/17 15:44 Dose: Not Given Levetiracetam (Keppra) 500 mg PO BID [facility] Levothyroxine Sodium (Synthroid) 112 mcg PO 0600 [facility] Pantoprazole Sodium (Protonix Ec Tab) 40 mg PO 0600 [facility] - Labs Labs: 03/13/17 05:30 03/13/17 05:30 PT 12.0 SECONDS (9.4-12.5) 03/12/17 00:15 INR 1.10 (0.93-1.08) H 03/12/17 00:15 APTT 33.0 Seconds (25.1-36.5) 03/12/17 00:15 - Constitutional Appears: Well, No Acute Distress - Head Exam Head Exam: NORMOCEPHALIC - Eye Exam Eye Exam: EOMI, Normal appearance - ENT Exam ENT Exam: Mucous Membranes Moist - Respiratory Exam Respiratory Exam: Clear to Ausculation Bilateral, NORMAL BREATHING PATTERN. absent: Rhonchi, Wheezes, Respiratory Distress - Cardiovascular Exam Cardiovascular Exam: REGULAR RHYTHM - Neurological Exam Neurological Exam: Alert, Awake, CN II-XII Intact, Oriented x3 Neuro motor strength exam: Left Upper Extremity: 5, Right Upper Extremity: 5, Left Lower Extremity: 5, Right Lower Extremity: 5 - Skin Skin Exam: Dry, Intact, Normal Color, Warm Assessment and Plan - Assessment and Plan (Free Text) Assessment: 61 yo female with PMH of HTN, DM2, and hypothyroidism [place] [facility] [place] found to have subdural hemtaoma, spontaneous vs traumatic - CT head shoed 1.7cm hematoma with subfalcine herniation and right to left midline shift - keppra for seizure prophylaxis, discontinue upon discharge - monitor electrolytes, correct as needed - fioricet 1 tab q4 prn - no aspirin use for 4 weeks - follow neurosurgery recommendations case reviewed and discussed with attending <Shekhar Newby - Last Filed: 03/13/17 23:34> Objective - Vital Signs/Intake and Output Vital Signs (last 24 hours): Temp Pulse Resp BP Pulse Ox 99.2 F 77 12 117/59 L 96 03/13/17 06:00 03/13/17 18:00 03/13/17 06:50 03/13/17 06:00 03/13/17 02:50 - Medications Medications: Current Medications Acetaminophen/Butalbital/Caffeine (Fioricet) 1 tab PO Q4H PRN PRN Reason: Headache Last Admin: 03/13/17 22:35 Dose: 1 tab Calcium Carbonate (Caltrate) 600 mg PO DAILY [facility] Cholecalciferol (Vitamin D) 2,000 intlu PO DAILY [facility] Sodium Chloride (Sodium Chloride 0.9%) 1,000 mls @ 100 mls/hr IV .Q10H [facility] Last Admin: 03/12/17 19:45 Dose: 100 mls/hr Insulin Human Lispro (Humalog Low) 0 units SC Q4H [facility] PRN Reason: Protocol Last Admin: 03/13/17 18:34 Dose: Not Given Levetiracetam (Keppra) 500 mg PO BID [facility] Last Admin: 03/13/17 18:38 Dose: 500 mg Levothyroxine Sodium (Synthroid) 112 mcg PO 0600 [facility] Pantoprazole Sodium (Protonix Ec Tab) 40 mg PO 0600 [facility] - Labs Labs: 03/13/17 05:30 03/13/17 05:30 PT 12.0 SECONDS (9.4-12.5) 03/12/17 00:15 INR 1.10 (0.93-1.08) H 03/12/17 00:15 APTT 33.0 Seconds (25.1-36.5) 03/12/17 00:15 Attending/Attestation - Attestation I have personally seen and examined this patient.: Yes I have fully participated in the care of the patient.: Yes I have reviewed all pertinent clinical information, including history, physical exam and plan: Yes
[2017-03-14] MEDS: Insulin Lispro (humaLOG) LOW Coverage SC SCH ×5 (06:00→21:28)
[2017-03-14] MEDS ORDERED: Levothyroxine 50 MCG TAB PO SCH (06:00)
[2017-03-14 06:05] LABS: ALB/GLOB RATIO 1.3 (1.1-1.8); ALKALINE PHOSPHATASE 45 U/L (38-126); ALT/SGPT 33 U/L (7-56); AST/SGOT 17 U/L (14-36); BILIRUBIN,TOTAL 0.6 mg/dL (0.2-1.3); BLOOD UREA NITROGEN 9 mg/dL (7-21); CALCIUM 6.4 mg/dL (8.4-10.5); CARBON DIOXIDE 26 mmol/L (21-33); CHLORIDE 105 mmol/L (98-107); GFR AFRICAN-AMERICAN > 60; GLUCOSE,RANDOM 121 mg/dL (70-110); MAGNESIUM 1.8 mg/dL (1.7-2.2); PHOSPHOROUS 4.2 mg/dL (2.5-4.5); POTASSIUM 3.1 mmol/L (3.6-5.0); SODIUM 140 mmol/L (132-148); TOTAL PROTEIN 6.5 g/dL (5.8-8.3)
[2017-03-14 06:07] LABS: BASO # 0.02 K/mm3 (0.0-2.0); BASO % 0.2 % (0.0-3.0); EOS # 0.1 (0.0-0.7); EOS % 1.3 % (1.5-5.0); GRAN # 6.47 (1.4-6.5); GRAN % 69.4 % (50.0-68.0); HEMATOCRIT 32.3 % (36.0-48.0); LYMPH % 21.4 % (22.0-35.0); MEAN CELL VOLUME 66.9 fl (80.0-105.0); MEAN CORPUSCULAR HEMOGLOBIN 21.3 pg (25.0-35.0); MEAN CORPUSCULAR HGB CONC 31.9 g/dl (31.0-37.0); MEAN PLATELET VOLUME 10.4 fl (7.0-11.0); MONO # 0.7 (0.1-0.6); MONO % 7.7 % (1.0-6.0); RED CELL DISTRIBUTION WIDTH 14.6 % (11.5-14.5); WHITE BLOOD COUNT 9.3 10^3/ul (4.5-11.0)
[2017-03-14] MEDS: Apap-Butalbital-Caffeine 325-50-40mg Tab PO PRN ×2 (06:28→20:45)
[2017-03-14] MEDS: Pantoprazole 40 mg EC Tab PO SCH (07:55)
[2017-03-14] MEDS: Levothyroxine 112 MCG TAB PO SCH (07:55)
--- NOTE | 2017-03-14 10:00 | CP.PCM.PN ---
<Adan Yuen - Last Filed: 03/14/17 10:02> Subjective - Date & Time of Evaluation Date of Evaluation: 03/14/17 Time of Evaluation: 07:20 - Subjective Subjective: Adan Yuen DO, PGY-1: Hospitalist Service Patient seen and examined at bedside. Patient denies any vomiting, focal neurologic deficit, or worsening headache. Nurse reports no events overnight. Objective - Vital Signs/Intake and Output Vital Signs (last 24 hours): Temp Pulse Resp BP Pulse Ox 98.2 F 68 18 103/41 L 96 03/14/17 06:00 03/14/17 06:50 03/14/17 06:50 03/14/17 05:59 03/13/17 02:50 Intake and Output: 03/14/17 03/14/17 06:59 18:59 Intake Total 200 Output Total 700 Balance -500 - Medications Medications: Current Medications Acetaminophen/Butalbital/Caffeine (Fioricet) 1 tab PO Q4H PRN PRN Reason: Headache Last Admin: 03/14/17 06:28 Dose: 1 tab Calcium Carbonate (Caltrate) 600 mg PO TID [facility] Cholecalciferol (Vitamin D) 2,000 intlu PO DAILY [facility] Insulin Human Lispro (Humalog Low) 0 units SC Q4H [facility] PRN Reason: Protocol Last Admin: 03/14/17 06:00 Dose: Not Given Levetiracetam (Keppra) 500 mg PO BID [facility] Last Admin: 03/13/17 18:38 Dose: 500 mg Levothyroxine Sodium (Synthroid) 112 mcg PO 0600 [facility] Last Admin: 03/14/17 07:55 Dose: 112 mcg Pantoprazole Sodium (Protonix Ec Tab) 40 mg PO 0600 [facility] Last Admin: 03/14/17 07:55 Dose: 40 mg Potassium Chloride (K-Dur 20 Meq Er Tab) 40 meq PO BID [facility] Stop: 03/16/17 10:01 - Labs Labs: 03/14/17 05:30 03/14/17 05:30 PT 12.0 SECONDS (9.4-12.5) 03/12/17 00:15 INR 1.10 (0.93-1.08) H 03/12/17 00:15 APTT 33.0 Seconds (25.1-36.5) 03/12/17 00:15 - Constitutional Appears: No Acute Distress - Head Exam Additional comments: s/p craniotomy - Eye Exam Eye Exam: EOMI, Normal appearance - ENT Exam ENT Exam: Mucous Membranes Moist, Normal Oropharynx - Neck Exam Neck Exam: Normal Inspection - Respiratory Exam Respiratory Exam: Clear to Ausculation Bilateral, NORMAL BREATHING PATTERN - Cardiovascular Exam Cardiovascular Exam: RRR, +S1, +S2 - GI/Abdominal Exam GI & Abdominal Exam: Soft, Normal Bowel Sounds - Extremities Exam Extremities Exam: Normal Inspection. absent: Calf Tenderness - Neurological Exam Neurological Exam: Awake Neuro motor strength exam: Left Upper Extremity: 5, Right Upper Extremity: 5, Left Lower Extremity: 5, Right Lower Extremity: 5 - Psychiatric Exam Psychiatric exam: Normal Affect, Normal Mood - Skin Skin Exam: Dry, Intact, Normal Color, Warm Assessment and Plan - Assessment and Plan (Free Text) Assessment: 61yo female PMHx HTN, DM2, and hypothyroidism presents to [facility] [place] ED for AMS. Plan: Subacute R subdural hematoma - s/p craniectomy and evacuation - Patient initially presented with AMS, now resolved - Patient is POD 1 s/p right craniectomy and evacuation with Dr. Luna - Repeat CT head shows interval improvement in midline shift and subfalcine herniation, though not totally resolved - Continue keppra for seizure prophylaxis; however, Keppra should be discontinued upon discharge, unless otherwise indicated. - HoB 30degrees - Aspiration, Seizure, and Fall precautions - Neurosurgery Dr. Luna consulted - Neurology Dr. Newby consulted - Physical therapy recommends TCU/HWS Hx of HTN - Patient remains normotensive off medications - monitor Electrolyte disturbance - K 3.1 replete and will follow morning CMP - Hypocalcemia Ca 6.3, CaCO3 600 mg TID Hx of Hypothyroidism - TSH elevated, with low/normal T4 - Reportedly takes 100mcg synthroid at home - Will start 112mcg daily; instructed patient to follow up with PCP for repeat labs Hx of DM - f/u HgbA1c - Accucheck ACHS - RISS low q4 GI ppx: Protonix 40mg PO DVT ppx: SCDs Disposition: Upon discharge, keppra should be discontinued per neurology. PT recommends TCU or HWS. <Keke Fiore - Last Filed: 03/15/17 10:27> Objective - Vital Signs/Intake and Output Vital Signs (last 24 hours): Temp Pulse Resp BP Pulse Ox 98.4 F 67 20 120/67 96 03/15/17 09:12 03/15/17 09:12 03/15/17 09:12 03/15/17 09:12 03/15/17 09:12 Intake and Output: 03/15/17 03/15/17 06:59 18:59 Intake Total 540 Balance 540 - Medications Medications: Current Medications Acetaminophen/Butalbital/Caffeine (Fioricet) 1 tab PO Q4H PRN PRN Reason: Headache Last Admin: 03/15/17 10:08 Dose: 1 tab Calcium Carbonate (Caltrate) 600 mg PO TID [facility] Last Admin: 03/15/17 10:13 Dose: 600 mg Cholecalciferol (Vitamin D) 2,000 intlu PO DAILY [facility] Last Admin: 03/15/17 10:10 Dose: 2,000 intlu Diphenhydramine HCl (Benadryl) 25 mg PO HS PRN PRN Reason: Other Sodium Chloride (Sodium Chloride 0.9%) 100 mls @ 150 mls/hr IV .Q40M [facility] Insulin Human Lispro (Humalog Low) 0 units SC Q4H [facility] PRN Reason: Protocol Last Admin: 03/15/17 10:00 Dose: Not Given Levetiracetam (Keppra) 500 mg PO BID [facility] Last Admin: 03/15/17 10:10 Dose: 500 mg Levothyroxine Sodium (Synthroid) 112 mcg PO 0600 [facility] Last Admin: 03/15/17 05:40 Dose: 112 mcg Pantoprazole Sodium (Protonix Ec Tab) 40 mg PO 0600 [facility] Last Admin: 03/15/17 05:40 Dose: 40 mg Potassium Chloride (K-Dur 20 Meq Er Tab) 40 meq PO BID [facility] Stop: 03/16/17 10:01 Last Admin: 03/15/17 10:10 Dose: 40 meq - Labs Labs: 03/15/17 06:00 03/15/17 06:00 PT 12.0 SECONDS (9.4-12.5) 03/12/17 00:15 INR 1.10 (0.93-1.08) H 03/12/17 00:15 APTT 33.0 Seconds (25.1-36.5) 03/12/17 00:15 Attending/Attestation - Attestation I have personally seen and examined this patient.: Yes I have fully participated in the care of the patient.: Yes I have reviewed all pertinent clinical information, including history, physical exam and plan: Yes Notes (Text): 03/15/17 10:24 Patient was seen and examined with medical unit secretary. Agreed with resident assessment and plan. 61 yrs old female with PMH of HTN, DM2, and hypothyroidism was admitted with change of mental status was found to have subacute R subdural hematoma - She is s/p craniectomy and evacuation.Mental status is back to Normal.Drain was removed/Patient does not has any focal deficit.We will get PT evaluation. Management plan was discussed in detail with patient Education was provided.
[2017-03-14] MEDS: Cholecalciferol 1,000 INTLU TAB PO SCH (10:41)
[2017-03-14] MEDS: Potassium Chloride 20 mEq ER Tab PO SCH ×2 (10:41→18:08)
[2017-03-14] MEDS ORDERED: Piperacillin/Tazobact 3.375 gm 100 ML IVPB ONE (16:47)
[2017-03-14] MEDS ORDERED: Vancomycin 1gm in NS 250ml 1 GM/250 ML BAG IVPB ONE (18:00)
--- NOTE | 2017-03-14 18:11 | PN ---
DATE: 03/14/2017 NEUROLOGY FOLLOWUP CHIEF COMPLAINT: Followup for right subdural hemorrhage, status evacuation. SUBJECTIVE: The patient is seen and examined at bedside, in no acute distress, reports no headache today. Does have right swollen eye, therefore we gave her Benadryl. No acute events overnight. PAST MEDICAL HISTORY: History of diabetes, hypertension, and hypothyroidism. FAMILY HISTORY: Noncontributory. SOCIAL HISTORY: No illicit drug use, smoking, or EtOH abuse. ALLERGIES: NO KNOWN DRUG ALLERGIES. MEDICATIONS: Reviewed by nurse per reconciliation sheet. REVIEW OF SYSTEMS: A 14-point review of systems negative as mentioned in the HPI. PHYSICAL EXAMINATION: GENERAL: The patient is seen up in bed, in no acute distress. VITAL SIGNS: Temperature afebrile, pulse rate is 81, blood pressure of 107/40. HEENT: Head is atraumatic and normocephalic. PERRLA. Extraocular muscles are intact. NECK: Supple. No JVD. No adenopathy noted. LUNGS: Clear to auscultation. No adventitious sounds. HEART: S1 and S2. Normal rate, normal rhythm. No murmurs, rubs, or gallops. ABDOMEN: Soft, nontender and nondistended. Bowel sounds are present. EXTREMITIES: No clubbing. No cyanosis. Peripheral pulses are 2+ bilaterally. NEUROLOGIC: The patient is alert, oriented to person, place, month, and year. Speech is fluent without any errors. Cranial nerves II through XII are intact. Motor exam, moves all extremities equally. Toes downgoing bilaterally. Sensory exam: Light touch, pinprick, proprioception, and vibration intact. DTRs are 2+ throughout and 1 at the ankles. Coordination: Slxfta-no-wnja intact. Gait is deferred for now. SKIN: She does have a healing from where she had craniotomy done. LABORATORY DATA: Reviewed. ASSESSMENT AND PLAN: This is a 61-year-old woman with history of hypertension, dyslipidemia, type 2 diabetes mellitus, and hypothyroidism, who presented to the [facility] for altered mental status, found to have subdural, spontaneous versus traumatic. CT head initially showed 1.7 cm hematoma, subfalcine herniation with [id number] midline shift, status post evacuation. Repeat CAT scan of the head showed resolution of the subfalcine herniation as well as the hematoma. She is on Keppra for prophylaxis and will be discontinued upon discharge. At this time, recommend: 1. systolic drops in her blood pressure. 2. Keep Keppra for seizure prophylaxis 500 p.o. b.i.d. and we will discontinue upon discharge. 3. Fioricet one tab p.o. q.4 hours p.r.n. for onset of headache. 4. We will give Benadryl today of 25 mg p.o. x1 dose for underlying right eye swelling and to follow with neurosurgical recommendations. No aspirin for at least 4 weeks and to follow with us as an outpatient. Once again, thank you for this followup. Shekhar Newby MD
[2017-03-15] MEDS: Insulin Lispro (humaLOG) LOW Coverage SC SCH ×6 (03:35→21:39)
[2017-03-15] MEDS: Pantoprazole 40 mg EC Tab PO SCH (05:40)
[2017-03-15] MEDS: Levothyroxine 112 MCG TAB PO SCH (05:40)
[2017-03-15 06:33] LABS: BASO # 0.03 K/mm3 (0.0-2.0); BASO % 0.4 % (0.0-3.0); EOS # 0.2 (0.0-0.7); GRAN # 4.63 (1.4-6.5); GRAN % 61.4 % (50.0-68.0); HEMATOCRIT 30.7 % (36.0-48.0); LYMPH # 2.1 (1.2-3.4); LYMPH % 27.5 % (22.0-35.0); MEAN CELL VOLUME 66.6 fl (80.0-105.0); MEAN CORPUSCULAR HEMOGLOBIN 21.5 pg (25.0-35.0); MEAN CORPUSCULAR HGB CONC 32.2 g/dl (31.0-37.0); MEAN PLATELET VOLUME 10.1 fl (7.0-11.0); MONO # 0.7 (0.1-0.6); MONO % 8.7 % (1.0-6.0); RED CELL DISTRIBUTION WIDTH 14.5 % (11.5-14.5); WHITE BLOOD COUNT 7.6 10^3/ul (4.5-11.0)
[2017-03-15 06:47] LABS: ALB/GLOB RATIO 1.2 (1.1-1.8); ALKALINE PHOSPHATASE 51 U/L (38-126); ALT/SGPT 22 U/L (7-56); AST/SGOT 30 U/L (14-36); BILIRUBIN,TOTAL 0.4 mg/dL (0.2-1.3); BLOOD UREA NITROGEN 9 mg/dL (7-21); CALCIUM 6.9 mg/dL (8.4-10.5); CARBON DIOXIDE 27 mmol/L (21-33); CHLORIDE 108 mmol/L (98-107); GFR AFRICAN-AMERICAN > 60; GLUCOSE,RANDOM 114 mg/dL (70-110); MAGNESIUM 1.8 mg/dL (1.7-2.2); PHOSPHOROUS 4.5 mg/dL (2.5-4.5); POTASSIUM 3.8 mmol/L (3.6-5.0); SODIUM 141 mmol/L (132-148); TOTAL PROTEIN 6.3 g/dL (5.8-8.3)
--- NOTE | 2017-03-15 08:48 | RAD ---
HISTORY: post op fever COMPARISON: 03/12/2017 TECHNIQUE: Chest PA and lateral FINDINGS: LUNGS: No active pulmonary disease. PLEURA: No significant pleural effusion identified. No pneumothorax apparent. CARDIOVASCULAR: Normal. OSSEOUS STRUCTURES: No significant abnormalities. VISUALIZED UPPER ABDOMEN: Normal. OTHER FINDINGS: None. IMPRESSION: No active disease.
[2017-03-15] MEDS: Apap-Butalbital-Caffeine 325-50-40mg Tab PO PRN ×3 (10:08→22:35)
[2017-03-15] MEDS: Potassium Chloride 20 mEq ER Tab PO SCH ×2 (10:10→17:44)
[2017-03-15] MEDS: Cholecalciferol 1,000 INTLU TAB PO SCH (10:10)
--- NOTE | 2017-03-15 11:34 | CP.PCM.PN ---
<[place]rica[place] Harbor - Last Filed: 03/15/17 19:04> Subjective - Date & Time of Evaluation Date of Evaluation: 03/15/17 Time of Evaluation: 07:32 - Subjective Subjective: Patient seen and examined at bedside. Per nursing no acute events occurred overnight. The patient still reports some discomfort around her right eye. The patient denies any chest pain, shortness of breath, fevers, chills, abdominal pain, lightheadedness, dizziness, changes in vision, nausea, vomiting, or any other complaints. Objective - Vital Signs/Intake and Output Vital Signs (last 24 hours): Temp Pulse Resp BP Pulse Ox 98.4 F 67 20 120/67 96 03/15/17 09:12 03/15/17 09:12 03/15/17 09:12 03/15/17 09:12 03/15/17 09:12 Intake and Output: 03/15/17 03/15/17 06:59 18:59 Intake Total 540 Balance 540 - Medications Medications: Current Medications Acetaminophen/Butalbital/Caffeine (Fioricet) 1 tab PO Q4H PRN PRN Reason: Headache Last Admin: 03/15/17 10:08 Dose: 1 tab Calcium Carbonate (Caltrate) 600 mg PO TID [facility] Last Admin: 03/15/17 10:13 Dose: 600 mg Cholecalciferol (Vitamin D) 2,000 intlu PO DAILY [facility] Last Admin: 03/15/17 10:10 Dose: 2,000 intlu Diphenhydramine HCl (Benadryl) 25 mg PO HS PRN PRN Reason: Other Sodium Chloride (Sodium Chloride 0.9%) 100 mls @ 150 mls/hr IV .Q40M [facility] Insulin Human Lispro (Humalog Low) 0 units SC Q4H [facility] PRN Reason: Protocol Last Admin: 03/15/17 10:00 Dose: Not Given Levetiracetam (Keppra) 500 mg PO BID [facility] Last Admin: 03/15/17 10:10 Dose: 500 mg Levothyroxine Sodium (Synthroid) 112 mcg PO 0600 [facility] Last Admin: 03/15/17 05:40 Dose: 112 mcg Pantoprazole Sodium (Protonix Ec Tab) 40 mg PO 0600 [facility] Last Admin: 03/15/17 05:40 Dose: 40 mg Potassium Chloride (K-Dur 20 Meq Er Tab) 40 meq PO BID [facility] Stop: 03/16/17 10:01 Last Admin: 03/15/17 10:10 Dose: 40 meq - Labs Labs: 03/15/17 06:00 03/15/17 06:00 PT 12.0 SECONDS (9.4-12.5) 03/12/17 00:15 INR 1.10 (0.93-1.08) H 03/12/17 00:15 APTT 33.0 Seconds (25.1-36.5) 03/12/17 00:15 - Head Exam Head Exam: ATRAUMATIC, NORMAL INSPECTION, NORMOCEPHALIC - Eye Exam Eye Exam: EOMI, Normal appearance, PERRL. absent: Periorbital tenderness Pupil Exam: NORMAL ACCOMODATION, PERRL. absent: Irregular, Unequal Additional comments: right eye slightly swollen in comparison to the left. - ENT Exam ENT Exam: Mucous Membranes Moist, Normal Exam, Normal Oropharynx - Neck Exam Neck Exam: Normal Inspection. absent: Lymphadenopathy, Thyromegaly - Respiratory Exam Respiratory Exam: Clear to Ausculation Bilateral, NORMAL BREATHING PATTERN. absent: Chest Wall Tenderness, Prolonged Expiratory Phase, Respiratory Distress - Cardiovascular Exam Cardiovascular Exam: REGULAR RHYTHM, RRR, +S1, +S2. absent: Gallop, Rubs - GI/Abdominal Exam GI & Abdominal Exam: Soft, Normal Bowel Sounds. absent: Hyperactive Bowel Sounds - Extremities Exam Extremities Exam: absent: Joint Swelling, Pedal Edema, Tenderness - Back Exam Back Exam: NORMAL INSPECTION. absent: CVA tenderness (L), CVA tenderness (R), paraspinal tenderness - Neurological Exam Neurological Exam: Alert, Awake, CN II-XII Intact, Oriented x3 - Psychiatric Exam Psychiatric exam: Normal Affect, Normal Mood - Skin Skin Exam: Dry, Intact Assessment and Plan - Assessment and Plan (Free Text) Assessment: 61yo female PMHx HTN, DM2, and hypothyroidism [place] [facility] [place]. Plan: Subacute R subdural hematoma - s/p craniectomy and evacuation - Patient initially presented with AMS, now resolved - Patient is POD 1 s/p right craniectomy and evacuation with Dr. Luna - Repeat CT head shows interval improvement in midline shift and subfalcine herniation, though not totally resolved - Continue keppra for seizure prophylaxis; however, Keppra should be discontinued upon discharge, unless otherwise indicated. - HoB 30degrees - Continue Aspiration, Seizure, and Fall precautions - Neurosurgery Dr. Luna consulted. Recommendations appreciated. - Neurology Dr. Newby consulted. Recommendations appreciated. - Physical therapy recommends TCU/HWS Hx of HTN - Patient remains normotensive off medications - monitor Electrolyte disturbance - K 3.1 replete and will follow morning CMP - Hypocalcemia Ca 6.9. Repleted. Will continue to monitor with serial cmp's Hx of Hypothyroidism - TSH elevated, with low/normal T4 - Reportedly takes 100mcg synthroid at home - Continue 112mcg daily; instructed patient to follow up with PCP for repeat labs. Hx of DM - HgbA1c 7.2% - Continue Accucheck ACHS - Continue RISS low q4 GI ppx: Protonix 40mg PO DVT ppx: SCDs <Keke Fiore - Last Filed: 03/16/17 17:06> Objective - Vital Signs/Intake and Output Vital Signs (last 24 hours): Temp Pulse Resp BP Pulse Ox 99.3 F 72 20 123/66 100 03/16/17 08:00 03/16/17 08:00 03/16/17 08:00 03/16/17 08:00 03/16/17 08:00 Intake and Output: 03/16/17 03/16/17 06:59 18:59 Intake Total 120 360 Balance 120 360 - Medications Medications: Current Medications Acetaminophen/Butalbital/Caffeine (Fioricet) 1 tab PO Q4H PRN PRN Reason: Headache Last Admin: 03/16/17 15:42 Dose: 1 tab Calcium Carbonate (Caltrate) 600 mg PO TID [facility] Last Admin: 03/15/17 17:43 Dose: 600 mg Cholecalciferol (Vitamin D) 2,000 intlu PO DAILY [facility] Last Admin: 03/16/17 10:56 Dose: 2,000 intlu Diphenhydramine HCl (Benadryl) 25 mg PO HS PRN PRN Reason: Other Sodium Chloride (Sodium Chloride 0.9%) 100 mls @ 150 mls/hr IV .Q40M [facility] Last Admin: 03/16/17 05:17 Dose: 150 mls/hr Insulin Human Lispro (Humalog Low) 0 units SC ACHS JIN PRN Reason: Protocol Levetiracetam (Keppra) 500 mg PO BID [facility] Last Admin: 03/16/17 10:56 Dose: 500 mg Levothyroxine Sodium (Synthroid) 112 mcg PO 0600 [facility] Last Admin: 03/16/17 05:22 Dose: 112 mcg Pantoprazole Sodium (Protonix Ec Tab) 40 mg PO 0600 [facility] Last Admin: 03/16/17 05:22 Dose: 40 mg - Labs Labs: 03/15/17 06:00 03/15/17 06:00 PT 12.0 SECONDS (9.4-12.5) 03/12/17 00:15 INR 1.10 (0.93-1.08) H 03/12/17 00:15 APTT 33.0 Seconds (25.1-36.5) 03/12/17 00:15 Attending/Attestation - Attestation I have personally seen and examined this patient.: Yes I have fully participated in the care of the patient.: Yes I have reviewed all pertinent clinical information, including history, physical exam and plan: Yes Notes (Text): 03/16/17 17:05 Patient was seen and examined with medical recruiter. Agreed with resident assessment and plan. 61-year-old woman with history of hypertension, dyslipidemia, type 2 diabetes mellitus, and hypothyroidism,who presented to the [facility] for altered mental status,found to have subdural, spontaneous versus traumatic. CT head initially showed 1.7 cm hematoma, subfalcine herniation with [id number] midline shift, status post evacuation. Repeat CAT scan of the head showed resolution of the subfalcine herniation as well as the , Patient does not has any Neurological deficit.She is awaiting for Physical therapy evaluation. Management plan was discussed in detail with patient Education was provided.
[2017-03-15] MEDS: Sodium Chloride 0.9% 100 ML IV SCH (14:24)
--- NOTE | 2017-03-15 14:51 | CP.PCM.PN ---
Subjective - Date & Time of Evaluation Date of Evaluation: 03/15/17 Time of Evaluation: 14:00 - Subjective Subjective: [id number] [id number] : 1955 Loc: 5RNO Room/Bed: 562-01 Age/Sex: 61 / F ADM Status: ADM IN ADM Date: DIS Date: DATE: 03/15/2017 NEUROLOGY FOLLOWUP CHIEF COMPLAINT: Followup for right subdural hemorrhage, status evacuation. SUBJECTIVE: The patient is seen and examined at bedside, in no acute distress, reports no headache today. No acute events overnight. PAST MEDICAL HISTORY: History of diabetes, hypertension, and hypothyroidism. FAMILY HISTORY: Noncontributory. SOCIAL HISTORY: No illicit drug use, smoking, or EtOH abuse. ALLERGIES: NO KNOWN DRUG ALLERGIES. MEDICATIONS: Reviewed by nurse per reconciliation sheet. REVIEW OF SYSTEMS: A 14-point review of systems negative as mentioned in the HPI. PHYSICAL EXAMINATION: GENERAL: The patient is seen up in bed, in no acute distress. VITAL SIGNS: Reviewed. HEENT: Head is atraumatic and normocephalic. PERRLA. Extraocular muscles are intact. NECK: Supple. No JVD. No adenopathy noted. LUNGS: Clear to auscultation. No adventitious sounds. HEART: S1 and S2. Normal rate, normal rhythm. No murmurs, rubs, or gallops. ABDOMEN: Soft, nontender and nondistended. Bowel sounds are present. EXTREMITIES: No clubbing. No cyanosis. Peripheral pulses are 2+ bilaterally. NEUROLOGIC: The patient is alert, oriented to person, place, month, and year. Speech is fluent without any errors. Cranial nerves II through XII are intact. Motor exam, moves all extremities equally. Toes downgoing bilaterally. Sensory exam: Light touch, pinprick, proprioception, and vibration intact. DTRs are 2+ throughout and 1 at the ankles. Coordination: Mxgult-gw-peia intact. Gait is deferred for now. SKIN: Craniotomy wound is stable. LABORATORY DATA: Reviewed. ASSESSMENT AND PLAN: This is a 61-year-old woman with history of hypertension, dyslipidemia, type 2 diabetes mellitus, and hypothyroidism, who presented to the [facility] for altered mental status, found to have subdural, spontaneous versus traumatic. CT head initially showed 1.7 cm hematoma, subfalcine herniation with [id number] midline shift, status post evacuation. Repeat CAT scan of the head showed resolution of the subfalcine herniation as well as the hematoma. She is on Keppra for prophylaxis and will be discontinued upon discharge. At this time, recommend: 1. Avoid systolic drops in her blood pressure. 2. Keep Keppra for seizure prophylaxis 500 p.o. b.i.d. and we will discontinue upon discharge. 3. Fioricet one tab p.o. q.4 hours p.r.n. for onset of headache. 4. No aspirin for at least 4 weeks and to follow with us as an outpatient. 5. Will sign off, f/u with neurosurgery. Once again, thank you for this followup. Shekhar Newby MD Objective - Vital Signs/Intake and Output Vital Signs (last 24 hours): Temp Pulse Resp BP Pulse Ox 98.4 F 67 20 120/67 96 03/15/17 09:12 03/15/17 09:12 03/15/17 09:12 03/15/17 09:12 03/15/17 09:12 Intake and Output: 03/15/17 03/15/17 06:59 18:59 Intake Total 540 Balance 540 - Medications Medications: Current Medications Acetaminophen/Butalbital/Caffeine (Fioricet) 1 tab PO Q4H PRN PRN Reason: Headache Last Admin: 03/15/17 10:08 Dose: 1 tab Calcium Carbonate (Caltrate) 600 mg PO TID [facility] Last Admin: 03/15/17 13:53 Dose: 600 mg Cholecalciferol (Vitamin D) 2,000 intlu PO DAILY [facility] Last Admin: 03/15/17 10:10 Dose: 2,000 intlu Diphenhydramine HCl (Benadryl) 25 mg PO HS PRN PRN Reason: Other Sodium Chloride (Sodium Chloride 0.9%) 100 mls @ 150 mls/hr IV .Q40M [facility] Last Admin: 03/15/17 14:24 Dose: 150 mls/hr Insulin Human Lispro (Humalog Low) 0 units SC Q4H [facility] PRN Reason: Protocol Last Admin: 03/15/17 13:49 Dose: Not Given Levetiracetam (Keppra) 500 mg PO BID [facility] Last Admin: 03/15/17 10:10 Dose: 500 mg Levothyroxine Sodium (Synthroid) 112 mcg PO 0600 [facility] Last Admin: 03/15/17 05:40 Dose: 112 mcg Pantoprazole Sodium (Protonix Ec Tab) 40 mg PO 0600 [facility] Last Admin: 03/15/17 05:40 Dose: 40 mg Potassium Chloride (K-Dur 20 Meq Er Tab) 40 meq PO BID [facility] Stop: 03/16/17 10:01 Last Admin: 03/15/17 10:10 Dose: 40 meq - Labs Labs: 03/15/17 06:00 03/15/17 06:00 PT 12.0 SECONDS (9.4-12.5) 03/12/17 00:15 INR 1.10 (0.93-1.08) H 03/12/17 00:15 APTT 33.0 Seconds (25.1-36.5) 03/12/17 00:15
[2017-03-16] MEDS: Insulin Lispro (humaLOG) LOW Coverage SC SCH ×5 (04:56→22:22)
[2017-03-16] MEDS: Sodium Chloride 0.9% 100 ML IV SCH (05:17)
[2017-03-16] MEDS: Pantoprazole 40 mg EC Tab PO SCH (05:22)
[2017-03-16] MEDS: Levothyroxine 112 MCG TAB PO SCH (05:22)
[2017-03-16] MEDS: Apap-Butalbital-Caffeine 325-50-40mg Tab PO PRN ×4 (09:10→22:52)
--- NOTE | 2017-03-16 10:22 | US ---
HISTORY: Leg pain and swelling. Evaluate for DVT PHYSICIAN(S): Ke Vines MD. TECHNIQUE: Duplex sonography and color-flow Doppler with graded compression were used to evaluate the deep venous systems of both lower extremities. FINDINGS: The visualized deep venous systems of both lower extremities are sonographically normal and compressible. Normal wave forms and augmentation are seen. There is no sonographic evidence for deep venous thrombosis in the visualized segments of both lower extremities. IMPRESSION: No sonographic evidence for deep venous thrombosis in the visualized segments of both lower extremities.
[2017-03-16] MEDS: Potassium Chloride 20 mEq ER Tab PO SCH (10:56)
[2017-03-16] MEDS: Cholecalciferol 1,000 INTLU TAB PO SCH (10:56)
--- NOTE | 2017-03-16 16:03 | CP.PCM.PN ---
<Zachary Henriquez - Last Filed: 03/16/17 15:59> Subjective - Date & Time of Evaluation Date of Evaluation: 03/16/17 Time of Evaluation: 15:59 - Subjective Subjective: Medicine Progress Note Pt seen and examined at bedside. No acute overnight events. Pt complaining of REDDING. Pt denied CP, SOB, nausea, vomiting, diarrhea, chills, fever, REDDING, or dizziness. Objective - Vital Signs/Intake and Output Vital Signs (last 24 hours): Temp Pulse Resp BP Pulse Ox 99.3 F 72 20 123/66 100 03/16/17 08:00 03/16/17 08:00 03/16/17 08:00 03/16/17 08:00 03/16/17 08:00 Intake and Output: 03/16/17 03/16/17 06:59 18:59 Intake Total 120 360 Balance 120 360 - Medications Medications: Current Medications Acetaminophen/Butalbital/Caffeine (Fioricet) 1 tab PO Q4H PRN PRN Reason: Headache Last Admin: 03/16/17 15:42 Dose: 1 tab Calcium Carbonate (Caltrate) 600 mg PO TID [facility] Last Admin: 03/15/17 17:43 Dose: 600 mg Cholecalciferol (Vitamin D) 2,000 intlu PO DAILY [facility] Last Admin: 03/16/17 10:56 Dose: 2,000 intlu Diphenhydramine HCl (Benadryl) 25 mg PO HS PRN PRN Reason: Other Sodium Chloride (Sodium Chloride 0.9%) 100 mls @ 150 mls/hr IV .Q40M [facility] Last Admin: 03/16/17 05:17 Dose: 150 mls/hr Insulin Human Lispro (Humalog Low) 0 units SC ACHS [facility]IN PRN Reason: Protocol Levetiracetam (Keppra) 500 mg PO BID [facility] Last Admin: 03/16/17 10:56 Dose: 500 mg Levothyroxine Sodium (Synthroid) 112 mcg PO 0600 [facility] Last Admin: 03/16/17 05:22 Dose: 112 mcg Pantoprazole Sodium (Protonix Ec Tab) 40 mg PO 0600 [facility] Last Admin: 03/16/17 05:22 Dose: 40 mg - Labs Labs: 03/15/17 06:00 03/15/17 06:00 PT 12.0 SECONDS (9.4-12.5) 03/12/17 00:15 INR 1.10 (0.93-1.08) H 03/12/17 00:15 APTT 33.0 Seconds (25.1-36.5) 03/12/17 00:15 - Constitutional Appears: No Acute Distress - Head Exam Additional comments: Incision line with franco c/d/i, without erythema or discharge. TTP with mild swelling. - Eye Exam Eye Exam: Normal appearance - ENT Exam ENT Exam: Normal Exam - Respiratory Exam Respiratory Exam: Clear to Ausculation Bilateral. absent: Rales, Rhonchi, Wheezes, Respiratory Distress - Cardiovascular Exam Cardiovascular Exam: RRR, +S1, +S2. absent: Gallop, Rubs, Murmur - GI/Abdominal Exam GI & Abdominal Exam: Soft. absent: Distended, Guarding, Tenderness, Rebound - Extremities Exam Extremities Exam: Normal Inspection - Back Exam Back Exam: NORMAL INSPECTION - Neurological Exam Neurological Exam: Alert, Awake, Oriented x3 - Psychiatric Exam Psychiatric exam: Normal Affect, Normal Mood - Skin Skin Exam: Dry, Intact, Normal Color, Warm Assessment and Plan - Assessment and Plan (Free Text) Assessment: 61yo female PMHx HTN, DM2, and hypothyroidism presents to [facility] for AMS was found to large subdural bleed and is s/p evacuation POD#3. Plan: 1. Subacute R subdural hematoma - s/p craniectomy and evacuation - AMS resolved - POD#3 s/p right craniectomy and evacuation with Dr. Luna - Repeat CT head shows interval improvement in midline shift and subfalcine herniation, though not totally resolved - Neurosurgery Dr. Luna consulted [place] to DC F/u in office for staple removal Will need PT eval and treat on DC - Neurology Dr. Newby consulted Continue keppra for seizure prophylaxis; however, Keppra should be discontinued upon discharge Fiorocet for REDDING Hold ASA - Physical therapy recommends TCU/HWS - Social work consulted, will DC to [facility] as HWS not covered by insurance - HoB 30 degrees - Continue Aspiration, Seizure, and Fall precautions 2. Hx of HTN - Patient remains normotensive off medications - Cont to monitor 3. Hypokalemia - Resolved - Cont to monitor, replete as needed 4. Hypocalcemia - Repleted - Cont to monitor, replete as needed 5. Hx of Hypothyroidism - TSH elevated, with low/normal T4 - Continue 112mcg daily; instructed patient to follow up with PCP for repeat labs. 6. Hx of DM - HgbA1c 7.2% - Continue Accucheck ACHS - ISS GI/DVT ppx - Protonix 40mg PO - SCDs Pt seen and examined at bedside with attending. Yoandy Henriquez, PGY1 <Keke Fiore - Last Filed: 03/16/17 17:07> Objective - Vital Signs/Intake and Output Vital Signs (last 24 hours): Temp Pulse Resp BP Pulse Ox 99.3 F 72 20 123/66 100 03/16/17 08:00 03/16/17 08:00 03/16/17 08:00 03/16/17 08:00 03/16/17 08:00 Intake and Output: 03/16/17 03/16/17 06:59 18:59 Intake Total 120 360 Balance 120 360 - Medications Medications: Current Medications Acetaminophen/Butalbital/Caffeine (Fioricet) 1 tab PO Q4H PRN PRN Reason: Headache Last Admin: 03/16/17 15:42 Dose: 1 tab Calcium Carbonate (Caltrate) 600 mg PO TID [facility] Last Admin: 03/15/17 17:43 Dose: 600 mg Cholecalciferol (Vitamin D) 2,000 intlu PO DAILY [facility] Last Admin: 03/16/17 10:56 Dose: 2,000 intlu Diphenhydramine HCl (Benadryl) 25 mg PO HS PRN PRN Reason: Other Sodium Chloride (Sodium Chloride 0.9%) 100 mls @ 150 mls/hr IV .Q40M [facility] Last Admin: 03/16/17 05:17 Dose: 150 mls/hr Insulin Human Lispro (Humalog Low) 0 units SC ACHS [facility]IN PRN Reason: Protocol Levetiracetam (Keppra) 500 mg PO BID [facility] Last Admin: 03/16/17 10:56 Dose: 500 mg Levothyroxine Sodium (Synthroid) 112 mcg PO 0600 [facility] Last Admin: 03/16/17 05:22 Dose: 112 mcg Pantoprazole Sodium (Protonix Ec Tab) 40 mg PO 0600 [facility] Last Admin: 03/16/17 05:22 Dose: 40 mg - Labs Labs: 03/15/17 06:00 03/15/17 06:00 PT 12.0 SECONDS (9.4-12.5) 03/12/17 00:15 INR 1.10 (0.93-1.08) H 03/12/17 00:15 APTT 33.0 Seconds (25.1-36.5) 03/12/17 00:15 Attending/Attestation - Attestation I have personally seen and examined this patient.: Yes I have fully participated in the care of the patient.: Yes I have reviewed all pertinent clinical information, including history, physical exam and plan: Yes Notes (Text): 03/16/17 17:07 Patient was seen and examined with medical investigator. Agreed with resident assessment and plan. 61-year-old woman with history of hypertension, dyslipidemia, type 2 diabetes mellitus, and hypothyroidism,who presented to the [facility] for altered mental status,found to have subdural, spontaneous versus traumatic. CT head initially showed 1.7 cm hematoma, subfalcine herniation with [id number] midline shift, status post evacuation. Repeat CAT scan of the head showed resolution of the subfalcine herniation as well as the , Patient does not has any Neurological deficit. Patient is awaiting for rehab placement, we will discharge once the arrangement are made. Management plan was discussed in detail with patient Education was provided.
[2017-03-17] MEDS: Pantoprazole 40 mg EC Tab PO SCH (06:48)
[2017-03-17] MEDS: Levothyroxine 112 MCG TAB PO SCH (06:48)
[2017-03-17] MEDS: Apap-Butalbital-Caffeine 325-50-40mg Tab PO PRN ×3 (06:49→20:31)
[2017-03-17 07:25] LABS: HEMATOCRIT 32.4 % (36.0-48.0); MEAN CELL VOLUME 66.7 fl (80.0-105.0); MEAN CORPUSCULAR HEMOGLOBIN 21.6 pg (25.0-35.0); MEAN CORPUSCULAR HGB CONC 32.4 g/dl (31.0-37.0); MEAN PLATELET VOLUME 10.3 fl (7.0-11.0); RED CELL DISTRIBUTION WIDTH 14.6 % (11.5-14.5); WHITE BLOOD COUNT 6.5 10^3/ul (4.5-11.0)
[2017-03-17 07:33] VITALS: BP 122/72; PULSE 63; RESP 18; TEMP 98.2; O2SAT 94
[2017-03-17 07:45] LABS: ALB/GLOB RATIO 1.2 (1.1-1.8); ALKALINE PHOSPHATASE 57 U/L (38-126); ALT/SGPT 39 U/L (7-56); AST/SGOT 26 U/L (14-36); BILIRUBIN,TOTAL 0.4 mg/dL (0.2-1.3); BLOOD UREA NITROGEN 10 mg/dL (7-21); CALCIUM 8.3 mg/dL (8.4-10.5); CARBON DIOXIDE 29 mmol/L (21-33); CHLORIDE 103 mmol/L (98-107); GFR AFRICAN-AMERICAN > 60; GLUCOSE,RANDOM 114 mg/dL (70-110); POTASSIUM 4.3 mmol/L (3.6-5.0); SODIUM 142 mmol/L (132-148); TOTAL PROTEIN 7.2 g/dL (5.8-8.3)
[2017-03-17] MEDS: Insulin Lispro (humaLOG) LOW Coverage SC SCH ×3 (07:54→16:48)
[2017-03-17] MEDS: Cholecalciferol 1,000 INTLU TAB PO SCH (09:23)
--- NOTE | 2017-03-17 15:39 | CP.PCM.PN ---
Subjective - Date & Time of Evaluation Date of Evaluation: 03/17/17 Time of Evaluation: 15:34 - Subjective Subjective: Medicine Progress Note Pt seen and examined at bedside. No acute overnight events. Pt complains of headache, but is controlled with medications. Pt denied chest pain, shortness of breath, nausea, vomiting, diarrhea, constipation, abdominal pain, fever, chills, or dizziness. Objective - Vital Signs/Intake and Output Vital Signs (last 24 hours): Temp Pulse Resp BP Pulse Ox 98.2 F 63 18 122/72 94 L 03/17/17 07:33 03/17/17 07:33 03/17/17 07:33 03/17/17 07:33 03/17/17 07:33 Intake and Output: 03/17/17 03/17/17 06:59 18:59 Intake Total 840 Output Total 0 Balance 840 - Medications Medications: Current Medications Acetaminophen/Butalbital/Caffeine (Fioricet) 1 tab PO Q4H PRN PRN Reason: Headache Last Admin: 03/17/17 13:11 Dose: 1 tab Calcium Carbonate (Caltrate) 600 mg PO TID [facility] Last Admin: 03/17/17 13:09 Dose: 600 mg Cholecalciferol (Vitamin D) 2,000 intlu PO DAILY [facility] Last Admin: 03/17/17 09:23 Dose: 2,000 intlu Diphenhydramine HCl (Benadryl) 25 mg PO HS PRN PRN Reason: Other Last Admin: 03/16/17 22:51 Dose: 25 mg Insulin Human Lispro (Humalog Low) 0 units SC ACHS [facility]IN PRN Reason: Protocol Last Admin: 03/17/17 11:58 Dose: Not Given Levetiracetam (Keppra) 500 mg PO BID [facility] Last Admin: 03/17/17 09:24 Dose: 500 mg Levothyroxine Sodium (Synthroid) 112 mcg PO 0600 [facility] Last Admin: 03/17/17 06:48 Dose: 112 mcg Pantoprazole Sodium (Protonix Ec Tab) 40 mg PO 0600 [facility] Last Admin: 03/17/17 06:48 Dose: 40 mg - Labs Labs: 03/17/17 07:00 03/17/17 07:00 PT 12.0 SECONDS (9.4-12.5) 03/12/17 00:15 INR 1.10 (0.93-1.08) H 03/12/17 00:15 APTT 33.0 Seconds (25.1-36.5) 03/12/17 00:15 - Constitutional Appears: No Acute Distress - Head Exam Additional comments: incision on right temporal region with franco, clean, dry, and intact. mild swelling. no erythema or discharge. minor TTP - Eye Exam Eye Exam: Normal appearance - ENT Exam ENT Exam: Normal Exam - Respiratory Exam Respiratory Exam: Clear to Ausculation Bilateral. absent: Rales, Rhonchi, Wheezes - Cardiovascular Exam Cardiovascular Exam: RRR, +S1, +S2. absent: Gallop, Rubs, Murmur - GI/Abdominal Exam GI & Abdominal Exam: Soft. absent: Distended, Guarding, Tenderness, Rebound - Extremities Exam Extremities Exam: Normal Inspection - Back Exam Back Exam: NORMAL INSPECTION - Neurological Exam Neurological Exam: Alert, Awake, Oriented x3 - Psychiatric Exam Psychiatric exam: Normal Affect, Normal Mood - Skin Skin Exam: Dry, Intact, Normal Color, Warm Assessment and Plan - Assessment and Plan (Free Text) Assessment: 61yo female PMHx HTN, DM2, and hypothyroidism presents to [facility] for A[place] was found to large subdural bleed and is s/p evacuation POD#4. Plan: 1. Subacute R subdural hematoma - s/p craniectomy and evacuation - Awaiting TCU acceptance - POD#4 s/p right craniectomy and evacuation with Dr. Luna - Repeat CT head shows interval improvement in midline shift and subfalcine herniation, though not totally resolved - Neurosurgery Dr. Luna consulted [place] to DC F/u in office for staple removal Will need PT eval and treat on DC - Neurology Dr. Newby consulted Continue keppra for seizure prophylaxis; however, Keppra should be discontinued upon discharge Fiorocet for REDDING Hold ASA - Physical therapy recommends TCU/HWS - Social work consulted, will DC to [facility] as HWS not covered by insurance - HoB 30 degrees - Continue Aspiration, Seizure, and Fall precautions 2. Hx of HTN - Patient remains normotensive off medications - Cont to monitor 3. Hypokalemia - Resolved - Cont to monitor, replete as needed 4. Hypocalcemia - Repleted - Cont to monitor, replete as needed 5. Hx of Hypothyroidism - TSH elevated, with low/normal T4 - Continue 112mcg daily; instructed patient to follow up with PCP for repeat labs. 6. Hx of DM - HgbA1c 7.2% - Continue Accucheck ACHS - ISS GI/DVT ppx - Protonix 40mg PO - SCDs Pt seen and examined at bedside with attending. Yoandy Henriquez, PGY1
--- NOTE | 2017-03-17 16:12 | CP.PCM.DIS ---
Provider - Provider Date of Admission: 03/12/17 02:19 Attending physician: Keke Fiore MD Primary care physician: NO PRIMARY CARE PROVIDER Consults: Neurosurgery: Jeremy Neuro: Odin Time Spent in preparation of Discharge (in minutes): 45 Hospital Course - Lab Results Lab Results: Micro Results 03/15/17 12:20 Urine Urine Culture - Final Gram Negative Vik 03/14/17 16:35 Blood Blood Culture - Preliminary NO GROWTH AFTER 48 HOURS 03/14/17 16:35 Blood Blood Culture - Preliminary NO GROWTH AFTER 48 HOURS 03/12/17 08:30 Naris MRSA Culture (Admit) - Final MRSA NOT DETECTED Most Recent Lab Values WBC 6.5 10^3/ul (4.5-11.0) 03/17/17 07:00 RBC 4.86 10^6/uL (3.5-6.1) 03/17/17 07:00 Hgb 10.5 g/dL (12.0-16.0) L 03/17/17 07:00 Hct 32.4 % (36.0-48.0) L 03/17/17 07:00 MCV 66.7 fl (80.0-105.0) L 03/17/17 07:00 MCH 21.6 pg (25.0-35.0) L 03/17/17 07:00 MCHC 32.4 g/dl (31.0-37.0) 03/17/17 07:00 RDW 14.6 % (11.5-14.5) H 03/17/17 07:00 Plt Count 258 10^3/uL (120.0-450.0) 03/17/17 07:00 MPV 10.3 fl (7.0-11.0) 03/17/17 07:00 Gran % 61.4 % (50.0-68.0) 03/15/17 06:00 Lymph % (Auto) 27.5 % (22.0-35.0) 03/15/17 06:00 Slope % (Auto) 8.7 % (1.0-6.0) H 03/15/17 06:00 Eos % (Auto) 2.0 % (1.5-5.0) 03/15/17 06:00 Baso % (Auto) 0.4 % (0.0-3.0) 03/15/17 06:00 Gran # 4.63 (1.4-6.5) 03/15/17 06:00 Lymph # 2.1 (1.2-3.4) 03/15/17 06:00 Slope # 0.7 (0.1-0.6) H 03/15/17 06:00 Eos # 0.2 (0.0-0.7) 03/15/17 06:00 Baso # 0.03 K/mm3 (0.0-2.0) 03/15/17 06:00 PT 12.0 SECONDS (9.4-12.5) 03/12/17 00:15 INR 1.10 (0.93-1.08) H 03/12/17 00:15 APTT 33.0 Seconds (25.1-36.5) 03/12/17 00:15 Sodium 142 mmol/L (132-148) 03/17/17 07:00 Potassium 4.3 mmol/L (3.6-5.0) 03/17/17 07:00 Chloride 103 mmol/L (98-107) 03/17/17 07:00 Carbon Dioxide 29 mmol/L (21-33) 03/17/17 07:00 Anion Gap 14 (10-20) 03/17/17 07:00 BUN 10 mg/dL (7-21) 03/17/17 07:00 Creatinine 0.6 mg/dl (0.7-1.2) L 03/17/17 07:00 Est GFR ( Amer) > 60 03/17/17 07:00 Est GFR (Non-Af Amer) > 60 03/17/17 07:00 POC Glucose (mg/dL) 135 mg/dL (65-110) H 03/17/17 11:38 Random Glucose 114 mg/dL (70-110) H 03/17/17 07:00 Hemoglobin A1c 7.2 % (4.2-6.5) H 03/12/17 09:00 Lactic Acid 0.9 mmol/L (0.7-2.1) 03/14/17 17:30 Calcium 8.3 mg/dL (8.4-10.5) L 03/17/17 07:00 Phosphorus 4.5 mg/dL (2.5-4.5) 03/15/17 06:00 Magnesium 1.8 mg/dL (1.7-2.2) 03/15/17 06:00 Total Bilirubin 0.4 mg/dL (0.2-1.3) 03/17/17 07:00 AST 26 U/L (14-36) 03/17/17 07:00 ALT 39 U/L (7-56) 03/17/17 07:00 Alkaline Phosphatase 57 U/L (38-126) 03/17/17 07:00 Lactate Dehydrogenase 505 U/L (333-699) 03/12/17 00:15 Total Creatine Kinase 119 U/L (35-230) 03/12/17 00:15 Troponin I < 0.01 ng/mL 03/12/17 00:15 Total Protein 7.2 g/dL (5.8-8.3) 03/17/17 07:00 Albumin 3.9 g/dL (3.0-4.8) 03/17/17 07:00 Globulin 3.3 gm/dL 03/17/17 07:00 Albumin/Globulin Ratio 1.2 (1.1-1.8) 03/17/17 07:00 25-OH Vitamin D Total 37.1 NG/ML (30.0-100.0) 03/12/17 06:00 Procalcitonin 0.41 NG/ML (0.19-0.49) 03/14/17 16:35 Free T4 0.87 ng/dL (0.78-2.19) 03/12/17 09:00 TSH 3rd Generation 13.90 mIU/mL (0.46-4.68) H 03/12/17 09:00 PTH Intact Whole Molec 12 pg/mL (14-64) L 03/12/17 06:00 - Hospital Course Hospital Course: 61 yo female with past medical history of hypertension, diabetes mellitus type 2 , and hypothyroidism presented to [facility] ED for altered mental status. CT head showed mixed denisty acute on subacute right convexity subdural hematoma measuring 1.7 cm with subfalcine herniation and [id number] midline shift. There is mild uncal herniation. There is entrapment of right lateral ventricle and dilatation of left lateral ventricle. Neurosurgery was contacted and the patient underwent emergent craniectomy and evacuation of the subdural hematoma, in which patient tolerated well. Neurology was also consulted and followed patient during hospital course. Patient was placed on Keppra for seizure prophylaxis. Repeat CT head showed interval improvement in midline shift and subfalcine herniation, though not totally resolved. Patient continued to progress during hospital course being downgraded from ICU to med/surg. PT evaluated the patient and recommended TCU. Today, patient was seen and examined at bedside. Patient was alert and oriented x3, only complaining of headache, which was controlled with medications. Neurosurgery was contacted recommended that patient could be discharged to TCU. Upon discharge from TCU, the patient will contact Dr. Luna's office to make her follow up appointment to remove milka. Per social work, TCU at [facility] is currently full, thus the decision was made to transfer the patient to [facility] TCU. The patient was informed of these decisions and agreed. The patient will resume her medications during hospital course at [facility] TCU and will receive further physical therapy. Discharge Diagnosis - Subacute right subdural hematoma s/p craniectomy an evacuation - Hypokalemia, resolved - Hypertension - Hypothyroidism - Diabetes Mellitus Type 2 Medications to be continued in TCU - Fiorocet 1 tab PO Q4H prn - Benadryl 25 mg PO HS prn - Cholecalciferol 2000 intlu PO daily - Protonix 40 mg PO 0600 - Keppra 500 mg PO BID - Levothyroxine 112 mcg PO 0600 - Calcium carbonate 600 mg PO TID - Insulin Lispro-Low Sliding Scale SC ACHS Discharge Exam - Head Exam Additional comments: Craniectomy incision site clean, dry, and intact. Milka in place. No erythema or discharge. Minimal TTP and swelling. - Eye Exam Eye Exam: Normal appearance - ENT Exam ENT Exam: Normal Exam - Neck Exam Neck exam: Normal Inspection - Respiratory Exam Respiratory Exam: Clear to PA & Lateral. absent: Rales, Rhonchi, Wheezes - Cardiovascular Exam Cardiovascular Exam: RRR. absent: Diastolic murmur, Gallop, Rubs, Systolic Murmur - GI/Abdominal Exam GI & Abdominal Exam: Soft. absent: Distended, Guarding, Tenderness - Extremities Exam Extremities exam: normal inspection - Neurological Exam Neurological exam: Alert, Normal Gait, Oriented x3 - Psychiatric Exam Psychiatric exam: Normal Affect, Normal Mood - Skin Skin Exam: Dry, Intact, Normal Color, Warm Discharge Plan - Follow Up Plan Condition: GUARDED Disposition: REHAB FACILITY/REHAB UNIT Instructions: Pneumococcal Vaccine for Adults (DC), Influenza Vaccine (GEN), Subdural Hematoma (DC), Fall Prevention (DC) Additional Instructions: 1. Discharge to TCU 2. Resume all medications from hospital stay in TCU 3. Please call Dr. Luna, neurosurgeon, on discharge to setup follow up appointment 4. Keppra should be continued in TCU for seizure prophylaxis, but discontinued on discharge 5. No aspirin use 6. Continue physical therapy Referrals: Michoacano Newby MD [Staff Provider] - [facility] [Primary Care Provider] - Constantin Luna MD [Staff Provider] -
== END 2017-03-17 22:10 | DRG 25 ==
LOC: ED 23:32 → ERH 03-12 02:19 → ICU 03-12 06:50 → 5RNO 03-14 14:21
PROVIDERS: ADMIT Internal Medicine; ATTEND Internal Medicine
PROC: 009400Z Drainage of Intracranial Subdural Space with Drainage Device, Open Approach (ICD-10-PCS; principal; 2017-03-12 03:00)
DX: I62.01 Nontraumatic acute subdural hemorrhage (principal); G93.5 Compression of brain; E03.9 Hypothyroidism, unspecified; E11.9 Type 2 diabetes mellitus without complications; E78.5 Hyperlipidemia, unspecified; E87.6 Hypokalemia; F17.210 Nicotine dependence, cigarettes, uncomplicated; I10 Essential (primary) hypertension; Z79.82 Long term (current) use of aspirin; Z79.899 Other long term (current) drug therapy; M19.019 Primary osteoarthritis, unspecified shoulder; K64.9 Unspecified hemorrhoids; R40.2413 Glasgow coma scale score 13-15, at hospital admission; E83.51 Hypocalcemia

== ENCOUNTER 2018-08-12 14:49 | Emergency (ER) | payer BC, MEDICAID, MEDICARE, OTHER ==
[2018-08-12 14:54] VITALS: TEMP 98; BMI 29.0
--- NOTE | 2018-08-12 16:00 | ED PDOC ---
Arrival/HPI <Lito Paez - Last Filed: 08/12/18 16:06> - General Historian: Patient, Family - History of Present Illness Narrative History of Present Illness (Text): 08/12/18 15:57 Pt is a 62 yo female with a PMH of SDH sp craniotomy, hyperthyroidism sp thyroidectomy, diabetes, hyperlipidemia, hypertension, who was advised to go to the ED by her PMD for abnormal Ca levels. Pt states she has had some cramping in her legs and arms recently. Pt denies chest pain, shortness of breath, mental status changes, constipation, diarrhea, nausea or vomiting. Time/Duration: Prior to Arrival Symptom Onset: Sudden Symptom Course: Unchanged Quality: Cramping Activities at Onset: Light Context: Home <Tin Preciado - Last Filed: 08/12/18 18:47> - General Chief Complaint: Abnormal Labs Past Medical History - Infectious Disease Hx of Infectious Diseases: None - Cardiac Hx Cardiac Disorders: Yes (ANGINA) Hx Hypertension: Yes - Pulmonary Hx Respiratory Disorders: No Hx Chronic Obstructive Pulmonary Disease (COPD): No - Neurological Hx Neurological Disorder: No Hx Seizures: No Other/Comment: h/o subdural hematoma - HEENT Hx HEENT Disorder: No - Renal Hx Renal Disorder: No - Endocrine/Metabolic Hx Endocrine Disorders: Yes Hx Diabetes Mellitus Type 2: Yes Hx Hypothyroidism: Yes (THYROIDECTOMY) - Hematological/Oncological Hx Blood Disorders: No - Integumentary Hx Dermatological Disorder: No - Musculoskeletal/Rheumatological Hx Musculoskeletal Disorders: Yes Hx Arthritis: Yes (shoulder) Hx Falls: Yes - Gastrointestinal Hx Gastrointestinal Disorders: Yes (HEMORRHOIDS?) - Genitourinary/Gynecological Hx Genitourinary Disorders: Yes (2 C/S) - Psychiatric Hx Psychophysiologic Disorder: Yes (SOCIAL DRINKING AND SMOKES CIGARETTES) Hx Substance Use: No - Surgical History Hx Cholecystectomy: Yes Other/Comment: 03/12/2017 - Craniotomy and evacuation of right. subdural hematoma. - Anesthesia Hx Anesthesia: Yes Hx Anesthesia Reactions: No Hx Malignant Hyperthermia: No <Tin Preciado - Last Filed: 08/12/18 18:47> Family/Social History Family/Social History: Diabetes, Hypertension, Neoplasm/Cancer Smoking Status: Former Smoker Hx Alcohol Use: Yes Frequency of alcohol use: Socially Hx Substance Use: No <Tin Preciado - Last Filed: 08/12/18 18:47> Allergies/Home Meds <Lito Paez - Last Filed: 08/12/18 16:06> <OzzyTin Hagenron - Last Filed: 08/12/18 18:47> Allergies/Adverse Reactions: Allergies No Known Allergies Allergy (Verified 03/17/17 23:17) Home Medications: Home Meds Medication Instructions Recorded Confirmed levETIRAcetam [Keppra] 500 mg PO Q12 03/17/17 03/17/17 Review of Systems - Review of Systems Constitutional: Normal Eyes: Normal ENT: Normal Respiratory: Normal Cardiovascular: Normal Gastrointestinal: Normal Musculoskeletal: Other (cramping) Skin: Normal Neurological: Normal Endocrine: Normal Hemo/Lymphatic: Normal Psychiatric: Normal <OzzyTin Román Last Filed: 08/12/18 18:47> Physical Exam Vital Signs Temp Pulse Resp BP Pulse Ox 08/12/18 14:54 98.0 F 77 18 143/83 99 <Lito Paez - Last Filed: 08/12/18 16:06> Vital Signs Reviewed: Yes Vital Signs Temp Pulse Resp BP Pulse Ox 08/12/18 14:54 98.0 F 77 18 143/83 99 Temperature: Afebrile Blood Pressure: Normal Pulse: Regular Respiratory Rate: Normal Appearance: Positive for: Well-Appearing Mental Status: Positive for: Alert and Oriented X 3 - Systems Exam Head: Present: Atraumatic, Normocephalic Pupils: Present: PERRL Extroacular Muscles: Present: EOMI Conjunctiva: Present: Normal Mouth: Present: Moist Mucous Membranes Neck: Present: Normal Range of Motion Respiratory/Chest: Present: Clear to Auscultation. No: Good Air Exchange, Respiratory Distress, Accessory Muscle Use Cardiovascular: Present: Regular Rate and Rhythm, Normal S1, S2 Abdomen: No: Tenderness, Distention Upper Extremity: Present: Normal Inspection Lower Extremity: Present: Normal Inspection Neurological: Present: GCS=15, CN II-XII Intact Skin: Present: Warm, Dry, Normal Color Psychiatric: Present: Alert, Oriented x 3 <OzzyTin Román - Last Filed: 08/12/18 18:47> Medical Decision Making ED Course and Treatment: 08/12/18 16:06 A 62 year old female presenting to the emergency room complaining of high blood pressure. In agreement with resident note, which includes further HPI details. Patient was seen and evaluated with resident, came up with plan and treatment t ogether. <Lito Paez - Last Filed: 08/12/18 16:06> ED Course and Treatment: 08/12/18 16:02 abnormal Ca level CMP CBC Urinalysis Trop 08/12/18 18:45 pt given ca gluconate IVP pt to be discharged Pt seen, examined, assessment and plan discussed with Dr Jeannine Preciado PGY1 <Tin Preciado - Last Filed: 08/12/18 18:47> - PA / ANIMAL ECOLOGIST / Resident Statement / has reviewed & agrees with the documentation as recorded. / has examined the patient and agrees with the treatment plan. - Scribe Statement The provider has reviewed the documentation as recorded by the Benjaminibrandy Estrella All medical record entries made by the Scribe were at my direction and personall y dictated by me. I have reviewed the chart and agree that the record accurately reflects my personal performance of the history, physical exam, medical decision making, and the department course for this patient. I have also personally directed, reviewed, and agree with the discharge instructions and disposition. <Lito Paez - Last Filed: 08/12/18 16:06> Disposition/Present on Arrival <Lito Paez - Last Filed: 08/12/18 16:06> - Present on Arrival Any Indicators Present on Arrival: No History of DVT/PE: No History of Uncontrolled Diabetes: No Urinary Catheter: No History of Decub. Ulcer: No History Surgical Site Infection Following: None - Disposition Have Diagnosis and Disposition been Completed?: Yes Disposition Time: 18:46 <Tin Preciado - Last Filed: 08/12/18 18:47> - Disposition Diagnosis: Hypocalcemia Disposition: HOME/ ROUTINE Condition: GOOD Referrals: Dyllan Bahena MD [Medical Doctor] - Follow up with primary Forms: [employer] ([place])
[2018-08-12] MEDS ORDERED: Sodium Chloride 0.9% 1,000 ML IV STA (16:19)
[2018-08-12 17:23] LABS: BASO # 0.03 K/mm3 (0.0-2.0); BASO % 0.4 % (0.0-3.0); EOS # 0.1 (0.0-0.7); EOS % 0.9 % (1.5-5.0); HEMOGLOBIN 11.9 g/dL (12.0-16.0); LYMPH # 3.5 (1.2-3.4); LYMPH % 44.2 % (22.0-35.0); MEAN CELL VOLUME 65.1 fl (80.0-105.0); MEAN CORPUSCULAR HEMOGLOBIN 20.6 pg (25.0-35.0); MEAN CORPUSCULAR HGB CONC 31.6 g/dl (31.0-37.0); MEAN PLATELET VOLUME 10.5 fl (7.0-11.0); MONO # 0.4 (0.1-0.6); MONO % 4.7 % (1.0-6.0); RBC 5.79 10^6/uL (3.5-6.1); RED CELL DISTRIBUTION WIDTH 16.7 % (11.5-14.5); WHITE BLOOD COUNT 7.9 10^3/uL (4.5-11.0)
[2018-08-12 18:03] LABS: BLOOD UREA NITROGEN 13 mg/dL (7-21); GFR NON-AFRICAN AMERICAN > 60
[2018-08-12 18:04] LABS: ALB/GLOB RATIO 1.4 (1.1-1.8); ALBUMIN 4.4 g/dL (3.0-4.8); AST/SGOT 24 U/L (14-36)
[2018-08-12 18:05] LABS: ALT/SGPT 26 U/L (7-56); TROPONIN I < 0.01 ng/mL
[2018-08-12 18:08] LABS: CALCIUM 6.5 mg/dL (8.4-10.5)
[2018-08-12 18:12] LABS: PH,URINE 6.5 (4.7-8.0); URINE BILIRUBIN NEGATIVE (NEGATIVE); URINE BLOOD NEGATIVE (NEGATIVE); URINE GLUCOSE (UA) >=1000 mg/dL (NEGATIVE); URINE LEUKOCYTE ESTERASE NEGATIVE Leu/uL (NEGATIVE); URINE PROTEIN NEGATIVE mg/dL (<30 mg/dL); URINE UROBILINOGEN 0.2 E.U./dL (<1 E.U./dL)
[2018-08-12 18:13] LABS: URINE APPEARANCE CLEAR (CLEAR); URINE COLOR COLORLESS (YELLOW)
[2018-08-12 20:12] VITALS: RESP 16
[2018-08-12 20:56] VITALS: BP 132/78; PULSE 72; O2SAT 98
== END 2018-08-12 20:54 | disposition home or self-care (01) ==
LOC: ED 14:49
DX: E83.51 Hypocalcemia (principal); I10 Essential (primary) hypertension; E78.5 Hyperlipidemia, unspecified; E11.9 Type 2 diabetes mellitus without complications; E03.9 Hypothyroidism, unspecified; Z83.3 Family history of diabetes mellitus; Z82.49 Family history of ischemic heart disease and other diseases of the circulatory system; Z87.891 Personal history of nicotine dependence
CPT/HCPCS: 80053; 81003; 84484; 85025; 96374; 99282; J0610; J7030